=== PATIENT | female | born 1995 | race Caucasian/White ===

== ENCOUNTER 2017-11-07 16:30 | Emergency (ER) | payer MEDICAID ==
[~2017-11-07] VITALS: Ht 175.3 cm; Wt 70.0 kg
[2017-11-07] MEDS ORDERED: normal saline 1000ML IV soln IVB ONE (16:45)
[2017-11-07 16:59] LABS: BASOPHILS % (AUTO) 0.2 % (0-1); EOSINOPHILS # (AUTO) 0.1 X10'3 (0-0.9); EOSINOPHILS % (AUTO) 0.9 % (0-6); LYMPHOCYTES # (AUTO) 1.3 X10'3 (1.1-4.8); LYMPHOCYTES % (AUTO) 13.8 % (21-51); MEAN CORPUSCULAR HEMOGLOBIN 29.9 PG (27.0-31.0); MEAN CORPUSCULAR HGB CONC 33.3 % (33.0-36.5); MEAN CORPUSCULAR VOLUME 89.8 FL (78-98); MEAN PLATELET VOLUME 9.4 FL (7.4-10.4); MONOCYTES # (AUTO) 0.4 X10'3 (0-0.9); MONOCYTES % (AUTO) 4.4 % (2-12); NEUTROPHILS # (AUTO) 7.6 X10'3 (1.8-7.7); NEUTROPHILS % (AUTO) 80.7 % (42-75); PLATELET COUNT 275 X10'3 (140-440); RED BLOOD COUNT 4.35 X10'6 (4.20-5.60); RED CELL DISTRIBUTION WIDTH 12.6 % (11.5-14.5); WHITE BLOOD COUNT 9.4 X10'3 (4.5-11.0)
[2017-11-07 17:18] LABS: ALANINE AMINOTRANSFERASE 28 U/L (12-78); ALBUMIN 4.2 G/DL (3.4-5.0); ALBUMIN/GLOBULIN RATIO 1.2 (1.1-1.5); ALKALINE PHOSPHATASE 152 IU/L (46-116); ANION GAP 18 (8-16); ASPARTATE AMINO TRANSFERASE 14 U/L (10-37); BILIRUBIN,TOTAL 0.5 MG/DL (0.1-1.0); BLOOD UREA NITROGEN 15 MG/DL (7-18); BUN/CREATININE RATIO 17.4 (6.6-38.0); CALCIUM 8.6 MG/DL (8.5-10.1); CHLORIDE 99 MMOL/L (99-107); CREATININE 0.86 MG/DL (0.40-0.90); GLUCOSE 318 MG/DL (70-104); POTASSIUM 4.2 MMOL/L (3.5-5.1); SODIUM 137 MMOL/L (135-145); TOTAL CARBON DIOXIDE 19.9 MMOL/L (24-32); TOTAL PROTEIN 7.6 G/DL (6.4-8.2); eGFR 81 ML/MIN
[2017-11-07] MEDS ORDERED: diphenhydrAMINE 50 mg/ml inj IM ONE (17:25)
[2017-11-07] MEDS ORDERED: haloperidol lactate 5mg/ml inj IM ONE (17:25)
[2017-11-07 17:27] LABS: ETHANOL < 0.010 GM/DL (0.0-0.010)
[2017-11-07 17:41] LABS: CLARITY,URINE SLIGHTLY CLOUDY (Clear); COLOR,URINE STRAW (Yellow); GLUCOSE, URINE >=1000 mg/dl (Neg); KETONES,URINE >=80 mg/dl (Neg); LEUKOCYTE ESTERASE ,URINE NEGATIVE (Neg); NITRITES, URINE NEGATIVE (Neg); OCCULT BLOOD,URINE NEGATIVE (Neg); PROTEIN,URINE NEGATIVE (Neg); UA COLLECTION TYPE CLN CATCH MIDSTREAM; UROBILINOGEN,URINE 0.2 E.U/dL (0.2-1.0)
[2017-11-07 17:47] LABS: SQUAMOUS EPITHELIAL CELL,UR FEW /LPF (FEW)
[2017-11-07 17:48] LABS: BACTERIA,URINE FEW /HPF (Neg); RBC,URINE 0-2 /HPF (0-2); WBC,URINE 0-4 /HPF (0-4)
[2017-11-07 17:50] LABS: URINE HCG NEGATIVE (NEG)
[2017-11-07 18:01] LABS: URINE AMPHETAMINE SCREEN NEGATIVE (Neg); URINE BARBITUATE SCREEN NEGATIVE (Neg); URINE BENZODIAZEPINES SCREEN NEGATIVE (Neg); URINE CANNABINOID SCREEN NEGATIVE (Neg); URINE COCAINE SCREEN NEGATIVE (Neg); URINE METHADONE SCREEN NEGATIVE (Neg); URINE OPIATE SCREEN NEGATIVE (Neg); URINE PHENCYCLIDINE SCREEN NEGATIVE (Neg)
[2017-11-07] MEDS ORDERED: insulin regular, human 10 units/0.1 ml syringe SQ ONE (18:30)
[2017-11-07] MEDS ORDERED: dextrose ORAL solution 15 GM/59 ML bottle PO PRN ×2 (18:30)
[2017-11-07] MEDS ORDERED: glucagon, human recombinant 1mg kit SUBCUT PRN (18:30)
[2017-11-07] MEDS ORDERED: MESSAGE TO PHARMACY PO ONE (18:30)
[2017-11-07] MEDS ORDERED: dextrose 50%-water 50ml dispensing syringe IV PRN ×2 (18:30)
[2017-11-07 19:20] LABS: HEMOGLOBIN A1C 8.5 % (4.5-6.2)
[2017-11-07] MEDS ORDERED: OLANZapine **IM** 10 mg inj. IM ONE (19:50)
[2017-11-07] MEDS ORDERED: insulin glargine (Lantus) pen - multi-dose SQ SCH (21:00)
[2017-11-07] MEDS: insulin Lispro (HumaLOG) vial - multi-dose SQ SCH (22:20)
[2017-11-08] MEDS ORDERED: ARIP10TA15 PO (06:53)
[2017-11-08] MEDS ORDERED: LANTUS SQ (06:53)
[2017-11-08] MEDS ORDERED: ARIP400S2 IM (06:53)
[2017-11-08] MEDS ORDERED: aripiprazole 5mg tablet PO SCH (08:00)
[2017-11-08] MEDS: insulin Lispro (HumaLOG) vial - multi-dose SQ SCH ×3 (08:32→19:22)
[2017-11-08] MEDS ORDERED: acetaminophen 325mg tablet PO PRN (13:55)
[2017-11-08 17:57] VITALS: BP 101/71
[2017-11-08] MEDS ORDERED: insulin glargine (Lantus) pen - multi-dose SQ SCH (21:00)
[2017-11-24] MEDS ORDERED: MISCELLANEOUS INJECTION IM SCH (08:00)
== END 2017-11-08 19:56 ==
LOC: ER 16:33
DX: E10.65 Type 1 diabetes mellitus with hyperglycemia (principal); F29 Unspecified psychosis not due to a substance or known physiological condition; Z79.4 Long term (current) use of insulin; Z79.899 Other long term (current) drug therapy
CPT/HCPCS: 36415; 80053; 80305; 80320; 81001; 81025; 82948; 83036; 84443; 85025; 96372; 99285; J1200; J1630; J1815; J7030

== ENCOUNTER 2019-07-18 06:18 | Emergency (ER) | payer MEDICAID ==
[~2019-07-18] VITALS: Ht 170.2 cm; Wt 210.0 kg
[~2019-07-18 06:18] MED LIST: ARIP10TA15 PO; ARIP400S2 IM; LANTUS SQ
[2019-07-18] MEDS ORDERED: haloperidol lactate 5mg/ml inj IM ONE (06:20)
[2019-07-18] MEDS ORDERED: LORazepam 2 mg/ml vial IM ONE ×2 (06:20→10:45)
[2019-07-18] MEDS ORDERED: diphenhydrAMINE 50 mg/ml inj IM ONE (06:20)
[2019-07-18] MEDS ORDERED: normal saline 1000ML IV soln IVB ONE (06:25)
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
[2019-07-18] MEDS ORDERED: BUSP15TA3 PO (06:48)
[2019-07-18] MEDS ORDERED: CLON-369 PO (06:48)
[2019-07-18] MEDS ORDERED: HALO10TA13 PO (06:48)
[2019-07-18 08:22] LABS: URINE HCG NEGATIVE (NEG)
[2019-07-18 08:27] LABS: CLARITY,URINE CLEAR (Clear); COLOR,URINE STRAW (Yellow); GLUCOSE, URINE 500 mg/dl (Neg); KETONES,URINE 40 mg/dl (Neg); LEUKOCYTE ESTERASE ,URINE NEGATIVE (Neg); NITRITES, URINE NEGATIVE (Neg); OCCULT BLOOD,URINE NEGATIVE (Neg); PH,URINE 5.5 (4.8-8.0); PROTEIN,URINE NEGATIVE (Neg); UROBILINOGEN,URINE 0.2 E.U/dL (0.2-1.0)
[2019-07-18 08:28] LABS: UA COLLECTION TYPE STRAIGHT CATH
[2019-07-18 08:35] LABS: URINE AMPHETAMINE SCREEN NEGATIVE (Neg); URINE BARBITUATE SCREEN NEGATIVE (Neg); URINE BENZODIAZEPINES SCREEN NEGATIVE (Neg); URINE CANNABINOID SCREEN NEGATIVE (Neg); URINE COCAINE SCREEN NEGATIVE (Neg); URINE METHADONE SCREEN NEGATIVE (Neg); URINE OPIATE SCREEN NEGATIVE (Neg); URINE PHENCYCLIDINE SCREEN NEGATIVE (Neg)
[2019-07-18 08:38] LABS: BASOPHILS % (AUTO) 0.2 % (0-1); EOSINOPHILS % (AUTO) 0.1 % (0-6); HEMATOCRIT 39.6 % (35.0-45.0); HEMOGLOBIN 13.1 g/dl (12.0-16.0); LYMPHOCYTES % (AUTO) 7.5 % (21-51); MEAN CORPUSCULAR HEMOGLOBIN 29.4 PG (27.0-31.0); MEAN PLATELET VOLUME 9.2 FL (7.4-10.4); MONOCYTES # (AUTO) 0.8 X10'3 (0-0.9); MONOCYTES % (AUTO) 5.8 % (2-12); NEUTROPHILS # (AUTO) 11.7 X10'3 (1.8-7.7); NEUTROPHILS % (AUTO) 86.4 % (42-75); PLATELET COUNT 282 X10'3 (140-440); RED BLOOD COUNT 4.45 X10'6 (4.20-5.60); RED CELL DISTRIBUTION WIDTH 13.3 % (11.5-14.5); WHITE BLOOD COUNT 13.6 X10'3 (4.5-11.0)
[2019-07-18 08:57] LABS: ALANINE AMINOTRANSFERASE 19 U/L (12-78); ALBUMIN 4.2 G/DL (3.4-5.0); ALBUMIN/GLOBULIN RATIO 1.2 (1.1-1.5); ALKALINE PHOSPHATASE 100 IU/L (46-116); ANION GAP 13 (8-16); ASPARTATE AMINO TRANSFERASE 18 U/L (10-37); BILIRUBIN,TOTAL 0.5 MG/DL (0.1-1.0); BLOOD UREA NITROGEN 14 MG/DL (7-18); BUN/CREATININE RATIO 14.9 (6.6-38.0); CALCIUM 8.9 MG/DL (8.5-10.1); CHLORIDE 101 MMOL/L (99-107); CREATININE 0.94 MG/DL (0.40-0.90); GLUCOSE 311 MG/DL (70-104); SODIUM 138 MMOL/L (135-145); TOTAL CARBON DIOXIDE 24.1 MMOL/L (24-32); TOTAL PROTEIN 7.7 G/DL (6.4-8.2); eGFR 73 ML/MIN
[2019-07-18 09:07] LABS: ETHANOL < 0.010 GM/DL (0.0-0.010)
[2019-07-18 09:09] LABS: ACETAMINOPHEN < 2.0 UG/ML (10-30)
--- NOTE | 2019-07-18 10:40 | NUR ---
PT BECOMING MORE AGITATED AT THIS TIME WILL ADVISE PROVIDER. PT'S RESTRAINTS HAVE BEEN REMOVED/APPLIED AND SKIN ASSESSED PER PROTOCOL
[2019-07-18] MEDS ORDERED: OLANZapine **IM** 10 mg inj. IM ONE (10:45)
[2019-07-18] MEDS ORDERED: busPIRone 15mg tablet PO PRN (12:00)
--- NOTE | 2019-07-18 12:30 | NUR ---
Patient was transferred ambulating self, no distress observed. Patient is already in green scrubs, all items inventoried and placed in locked cabinet for safe keeping. She is a non-smoker. Patient is pleasant and cooperaticve with care. She appears to be resonding to some internal stimuli, laughing at inappropriate times and taking large pauses prior to answering. She appears somewhat tired possibly related to previously administered medications. Patient denies SI/HI/A/VH as of right now. She is being evaluated by GUADALUPE Vidales. Patient hasa Hx of DM I and DKA. She also hasa previous hx of schizophrenia and states that she ran out of her medications three days ago.
--- NOTE | 2019-07-18 13:00 | NUR ---
BREAKING PRIMARY NURSE AT THIS TIME.[facility] DIGITAL MARKETING OFFICER AT BEDSIDE TALKING TO EPT,PT WANT TO EXPRESS HER FEELING BY DRAWING SO [facility] MARIEL ASKED FOR PAPER AND COLOR,GIVEN TO [facility] PT.WILL CONT TO MONITOR .
--- NOTE | 2019-07-18 14:25 | NUR ---
Admissions is at bedside going through consents and paperwork with patient. Patient is somewhat difficult to rouse but is directable and compliant.
--- NOTE | 2019-07-18 14:32 | NUR ---
Flash from [facility] states that he is keeping patient on a 5150 for DTO/GD.
--- NOTE | 2019-07-18 14:50 | NUR ---
Patient is difficult to rouse but is currently sitting up in bed in the high palomino's position, eating her lunch.
[2019-07-18] MEDS: clonazePAM 0.5mg tablet PO PRN (16:48)
--- NOTE | 2019-07-18 16:53 | NUR ---
Patient states she is anxious and she just wants to "get out of here and get wasted". She attempts to get out of bed "to leave" but is redirectable with much prompting. She is given PRN Klonopin and is now resting peacefully. She continues to have tangential speech with some thought blocking. Will continue to monitor.
--- NOTE | 2019-07-18 17:27 | NUR ---
Patient is resting in bed peacefully in a semi-palomino's position. No distress observed.
--- NOTE | 2019-07-18 19:02 | NUR ---
Received patient sleeping in her bed in supine position, patient states "I am feeling funny" requested her blood sugar to be taken. POC blood glucose 295. Will follow up with provider.
[2019-07-18] MEDS ORDERED: INSU100I31 SQ (19:41)
[2019-07-18] MEDS ORDERED: BUSP30TA3 PO (19:41)
[2019-07-18] MEDS ORDERED: INSU100I45 SQ (19:41)
--- NOTE | 2019-07-18 20:05 | NUR ---
Patient is sleeping in semi-palomino position, respirations even and unlabored. Pt. rouses to name and allows 1:1 assessment. Patient ate 100% of her dinner. Patient is mumbling under her breath and when asked what she is saying "oh nothing, never mind." Unable to assess SI/HI, A/VH pt. just doesn't respond to questions and pt. presents as fatigued. Patient remains calm thoughout assessment and immedialy falls back to sleep. Pt. is compliant with medications. Patient HS blood glucose was 295.
[2019-07-18] MEDS ORDERED: MESSAGE TO PHARMACY PO ONE (21:00)
[2019-07-18] MEDS ORDERED: insulin Lispro (HumaLOG) vial - multi-dose SQ SCH (21:00)
[2019-07-18] MEDS ORDERED: dextrose 50%-water 50ml dispensing syringe IV PRN ×2 (21:00)
[2019-07-18] MEDS ORDERED: dextrose ORAL solution 15 GM/59 ML bottle PO PRN ×2 (21:00)
[2019-07-18] MEDS ORDERED: glucagon, human recombinant 1mg kit SUBCUT PRN (21:00)
[2019-07-18] MEDS: haloperidol 5mg tablet PO SCH (21:04)
[2019-07-18] MEDS: insulin glargine (Lantus) pen - multi-dose SQ SCH (21:07)
--- NOTE | 2019-07-18 22:12 | NUR ---
Patient continues to sleep in semi-fowlers position, respirations even and unlabored. No distress noted.
--- NOTE | 2019-07-19 00:35 | NUR ---
Patient sleeping on left side, no distress noted. Respirations even and unlabored.
--- NOTE | 2019-07-19 02:14 | NUR ---
Patient sleeping restfully on right side, respirations even and unlabored.
--- NOTE | 2019-07-19 03:54 | NUR ---
Patient up to the bathroom, then back to bed. No distress noted. Patient returns to right side.
[2019-07-19] MEDS ORDERED: ARIPIPRAZOLE 10 MG TABLET PO SCH (08:00)
[2019-07-19] MEDS ORDERED: aripiprazole 400mg suspension ER syringe IM SCH (08:00)
[2019-07-19] MEDS: haloperidol 5mg tablet PO SCH ×2 (08:15→20:30)
--- NOTE | 2019-07-19 13:03 | NUR ---
relieving RN for lunch, pt is sleeping, lunch tray at bedside, pt is now awake eating lunch, calm and cooperative
--- NOTE | 2019-07-19 16:06 | NUR ---
sitting quietly in bed
[2019-07-19] MEDS ORDERED: busPIRone 15mg tablet PO PRN (16:45)
--- NOTE | 2019-07-19 17:13 | NUR ---
sitting quietly in bed
[2019-07-19 17:35] VITALS: BP 112/48
[2019-07-19] MEDS: clonazePAM 0.5mg tablet PO PRN (20:30)
[2019-07-19] MEDS: insulin glargine (Lantus) pen - multi-dose SQ SCH (20:33)
--- NOTE | 2019-07-19 21:20 | NUR ---
The patient has been accepted to [facility] sometime tonight.
== END 2019-07-19 21:30 ==
LOC: ER 06:19
DX: F23 Brief psychotic disorder (principal); E11.9 Type 2 diabetes mellitus without complications; Z79.4 Long term (current) use of insulin; Z79.899 Other long term (current) drug therapy
CPT/HCPCS: 36415; 71045; 80053; 80305; 80320; 80329; 81003; 81025; 82948; 83036; 84443; 85025; 93005; 96372; 99291; J1200; J1630; J1815; J2060; J3490; J7030

== ENCOUNTER 2019-07-19 20:52 | Inpatient (IN) | payer MEDICAID ==
[~2019-07-19] VITALS: Ht 175.3 cm; Wt 94.6 kg
[~2019-07-19 20:52] MED LIST changes: +BUSP30TA3 PO; +CLON-369 PO; +HALO10TA13 PO; +INSU100I31 SQ; +INSU100I45 SQ
[2019-07-19 23:30] VITALS: BP 114/67
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
[2019-07-20] MEDS ORDERED: traZODone 50mg tablet PO PRN (02:45)
[2019-07-20] MEDS ORDERED: diphenhydrAMINE 25mg capsule PO PRN (02:45)
[2019-07-20] MEDS ORDERED: mag hydrox/Alum hydrox/simeth 30ml oral suspension PO PRN (02:45)
[2019-07-20] MEDS ORDERED: magnesium hydroxide 30ml (MOM) UD suspension PO PRN (02:45)
[2019-07-20] MEDS ORDERED: LORazepam 1 MG tablet PO PRN ×2 (02:45)
[2019-07-20] MEDS ORDERED: quetiapine 100mg tablet PO PRN (02:45)
[2019-07-20] MEDS ORDERED: loperamide 2mg capsule PO PRN (02:45)
[2019-07-20] MEDS ORDERED: haloperidol 5mg tablet PO PRN (02:45)
[2019-07-20] MEDS ORDERED: acetaminophen 325mg tablet PO PRN ×2 (02:45)
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
[2019-07-20 07:47] VITALS: BP 102/68
[2019-07-20] MEDS: haloperidol 5mg tablet PO SCH ×2 (08:30→20:20)
[2019-07-20] MEDS: busPIRone 15mg tablet PO PRN ×3 (10:12→18:20)
--- NOTE | 2019-07-20 10:14 | NUR ---
DM Consult: Pt hx T1DM A1C 7.2 admit w/ psychosis combative in ER per note. Not appropriate for DM ed at this time. Addendum: 07/20/19 at [address] Amended: Links added.
[2019-07-20] MEDS ORDERED: insulin Lispro (HumaLOG) vial - multi-dose SQ ONE ×3 (11:45→20:35)
[2019-07-20] MEDS ORDERED: insulin Lispro (HumaLOG) vial - multi-dose SQ SCH (11:45)
[2019-07-20] MEDS: insulin Lispro (HumaLOG) vial - multi-dose SQ SCH (17:00)
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
[2019-07-20] MEDS: clonazePAM 0.5mg tablet PO PRN (18:51)
[2019-07-20 20:00] VITALS: BP 113/68
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
[2019-07-21] MEDS: insulin Lispro (HumaLOG) vial - multi-dose SQ SCH ×4 (07:00→17:00)
[2019-07-21 08:00] VITALS: BP 124/73
[2019-07-21] MEDS ORDERED: insulin glargine (Lantus) pen - multi-dose SQ SCH (08:00)
[2019-07-21] MEDS: haloperidol 5mg tablet PO SCH ×2 (08:15→20:24)
[2019-07-21] MEDS: BASAGLAR INSULIN SQ SCH (08:25)
[2019-07-21] MEDS: busPIRone 15mg tablet PO PRN ×2 (09:22→18:18)
--- NOTE | 2019-07-21 10:00 | NUR ---
Group Therapy: Process Group This Clinicians goal for this process group were as follows: (1) Ask scaling questions about Patients current anxiety, depression, and irritability symptoms as a check-in. (2) Review the concept of emotional and situational triggers as it relates to potential onsets of maladaptive episodes of emotional escalation. (3) Review the concept of thought-stopping, and thought-reframing as interventions to stop unhelpful/irrational thinking processes. (4) Provide psychoeducation on mindfulness as a principle that can assist in reducing maladaptive symptoms of emotional escalation. (5) Process Clients thoughts and reflections on this topic within the group milieu. Patient identified experiencing the following levels of anxiety, depression, and anger/irritability while present in the group milieu. Anxiety: 05/29 Depression: 06/28 Anger irritability: 02/28 Patient presented as open and cooperative within the group milieu. This Clinician encouraged Client to identify any thoughts that she was thinking in her mind and any physical sensations that she was experiencing that led her to list her subjective experience of depression as a 5. Patient shared that she not thinking any unhelpful thoughts, but she simply felt tired and lethargic. This Clinician used Patient's description of her depression symptoms as a segway to discuss the importance of identifying thoughts and feelings, and being able to utilize effective interventions,before it becomes too challenging to reduce said symptoms (08/28 on a symptom). Oracio Fields MA, JOHN Addendum: 07/21/19 at 1132 by Oracio Fields SS Amended: Links added.
[2019-07-21] MEDS ORDERED: venlafaxine XR 75mg capsule (Q24H) PO ONE (11:35)
[2019-07-21] MEDS ORDERED: venlafaxine XR 37.5mg cap (Q24H) PO ONE (12:00)
[2019-07-21] MEDS ORDERED: insulin Lispro (HumaLOG) vial - multi-dose SQ PRN (13:05)
[2019-07-21] MEDS: clonazePAM 0.5mg tablet PO PRN (13:51)
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
--- NOTE | 2019-07-21 17:59 | NUR ---
Patient ate 11 carbohydrates with her dinner and refused insulin coverage because her CBG was 72.
[2019-07-21 20:00] VITALS: BP 98/55
[2019-07-21] MEDS: busPIRone 15mg tablet PO SCH (20:24)
[2019-07-21] MEDS ORDERED: glucagon, human recombinant 1mg kit SUBCUT PRN (23:30)
[2019-07-21] MEDS ORDERED: dextrose 50%-water 50ml dispensing syringe IV PRN ×2 (23:30)
[2019-07-21] MEDS ORDERED: dextrose ORAL solution 15 GM/59 ML bottle PO PRN ×2 (23:30)
[2019-07-21] MEDS ORDERED: insulin Lispro (HumaLOG) vial - multi-dose SQ SCH (23:30)
[2019-07-21] MEDS ORDERED: MESSAGE TO PHARMACY PO ONE (23:30)
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
[2019-07-22] MEDS: BASAGLAR INSULIN SQ SCH (07:21)
[2019-07-22] MEDS: venlafaxine XR 37.5mg cap (Q24H) PO SCH (07:29)
[2019-07-22] MEDS: busPIRone 15mg tablet PO SCH ×2 (07:45→13:55)
[2019-07-22] MEDS: haloperidol 5mg tablet PO SCH (07:46)
[2019-07-22 08:00] VITALS: BP 115/71
--- NOTE | 2019-07-22 10:17 | NUR ---
Patient requested her blood sugar be checked and was 69. Pt. given 15g carb orange juice and will recheck CBG in 15 minutes
[2019-07-22] MEDS: clonazePAM 0.5mg tablet PO PRN (10:21)
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
--- NOTE | 2019-07-22 10:25 | NUR ---
[facility] REFERRAL Completed and faxed [facility] referral to [facility]. JOHN Colunga
[2019-07-22] MEDS ORDERED: tuberculin, purif. prot. deriv. 5 units/0.1ml ID ONE (13:35)
[2019-07-22] MEDS ORDERED: busPIRone 15mg tablet PO ONE (17:05)
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
[2019-07-22 20:00] VITALS: BP 106/64
[2019-07-22] MEDS ORDERED: haloperidol 5mg tablet PO ONE (21:00)
[2019-07-22] MEDS ORDERED: insulin glargine (Lantus) pen - multi-dose SQ SCH (21:00)
--- NOTE | 2019-07-23 00:14 | NUR ---
Nursing Progress Note: Legal hold: 5150 Client on voluntary/involuntary status for GD/DTO Report received from Taylor with use of SBAR. Why are they here: Patient is a 23 year old female who is brought to the ER by the Infrastructure Analyst's office from home for acute psychosis. The patient's mother states that the patient has a known history of schizophrenia and she is unaware of the medications that the patient has been taking. The patient has known history of type I diabetes and she does take insulin. The patient was found swimming in her neighbors pool and when the Infrastructure Analyst showed up she began yelling and screaming. The patient yelled and screamed from her arrest during her car ride to her arrival at the hospital. The patient was placed on a 5150 by the Infrastructure Analyst's department. Mother states that there are questionable suicidal and homicidal ideations. Assessment What has happened this shift: Patient isolated to her room this shift asleep at start. Attempted to get her to get out of bed but stated no want to stay in bed. Pt appears with drawn today and little anxious. Hs blood sugar 217 refused snack and fell back to sleep after meds. S/I, H/I: denies A/VH: denies Sleep: Napped frequently throughout the day. ADL's: Independent. Showered Group attendance: Yes Were meds taken: Yes Any med S/E: Pt. reports fatigue. Mental Status Exam Appearance: neat and clean Eye contact: direct Behavior: cooperative, withdrawn, isolates to room. Speech: normal rate and volume Affect: flat Mood: Depressed Thought process: linear Thought Content: Concerns of going to a CR Cognition: A+OX4 Insight: fair Judgment: fair Interventions PRN's used: none Therapeutic interventions: Introduced self and established rapport, maintained a safe and supportive environment, provided clear and simple instructions medication administration/education/monitoring, Q15 min safety checks. Restraints/seclusion/emergency medication: N/A Justification of Continued Inpatient Treatment: Patient requires interruption of current crisis, medication adjustments in a safe and therapeutic environment.
[2019-07-23] MEDS: insulin Lispro (HumaLOG) vial - multi-dose SQ SCH ×3 (07:00→17:59)
[2019-07-23] MEDS: BASAGLAR INSULIN SQ SCH (07:20)
[2019-07-23] MEDS ORDERED: BASAGLAR INSULIN SQ ONE (07:25)
[2019-07-23 08:00] VITALS: BP 114/66
[2019-07-23] MEDS: venlafaxine XR 37.5mg cap (Q24H) PO SCH (08:25)
[2019-07-23] MEDS: haloperidol 5mg tablet PO SCH ×2 (08:25→21:26)
[2019-07-23] MEDS: busPIRone 15mg tablet PO SCH ×3 (09:30→16:31)
--- NOTE | 2019-07-23 10:12 | NUR ---
HYPOGLYCEMIC EPISODE: Pt. hypoglycemic this AM with a BS of 67, Dr. Frias notified. Received order to administer only 50units of Basaglar Insulin. Pt. also given oral glucose Dex4 per protocol. Blood sugar rechecked in 15min and was 121, will continue to monitor.
--- NOTE | 2019-07-23 11:16 | NUR ---
ACCEPTED AT [facility] Key interviewed with Alexander for [facility]. She has been accepted. Spoke to Michele at [facility], she can go on Sunday as long as she has all of her medications in hand (30 day supply). JOHN Colunga
[2019-07-23] MEDS: clonazePAM 0.5mg tablet PO PRN (11:47)
--- NOTE | 2019-07-23 11:53 | NUR ---
Nursing Progress Note: Legal hold: Voluntary Client on voluntary/involuntary status for GD/DTO Report received from nurse with use of SBAR: OSMANI Henry Why are they here: Patient is a 23 year old female who is brought to the ER by the Hotel Server's office from home for acute psychosis. The patient's mother states that the patient has a known history of schizophrenia and she is unaware of the medications that the patient has been taking. The patient has known history of type I diabetes and she does take insulin. The patient was found swimming in her neighbors pool and when the Hotel Server showed up she began yelling and screaming. The patient yelled and screamed, and continued to do so r/t her arrest during her car ride and arrival at the hospital. The patient was placed on a 5150 by the [facility]'s department. Mother states that there are questionable suicidal and homicidal ideations. Assessment What has happened this shift: Received pt. laying in bed sleeping at the beginning of the shift, she awoke requesting her scheduled Basaglar Insulin. However, BS obtained and pt. was hypoglycemic (see previous note) she denies any s/s or hypoglycemia and none exhibited. Dr. Frias notified, and pt's Basaglar Insulin will be reduced to 50 units Q AM. 1:1 completed at bedside, pt. denies any S/I/, H/I, A/V/VILLAVICENCIO, and no delusional statements made. She states, "I am feeling good, and I have a plan for where I'm going next." However, pt. does admit to some ongoing anxiety r/t her possible placement at [facility], and reports that she will be having a FaceTime interview with [facility] and her oncology social worker today. Interview appeared to go well, and pt. called her family in order to have them bring in her medications so the she can take them to [facility] with her. Pt's father will bring in medications tomorrow. Pt. reports she has maintained a good relationship with her family despite the occurrences the brought her onto the unit. In the afternoon she requested PRN Clonazepam for anxiety, administered with effectiveness, will continue to monitor. S/I, H/I: Denies A/VH: Denies, pt. does not appear internally preoccupied Sleep: Pt. reports she slept well, sleep hours are 10 ADL's: Independent Group attendance: No Were meds taken: Yes Any med S/E: None Mental Status Exam Appearance: Neat and appropriately dressed Eye contact: Good Behavior: Cooperative and somewhat anxious/restless AEB pacing and making many requests throughout the shift Speech: Soft, WNL Mood: Pleasant Affect: Blunted Thought process: Poverty of thought Thought Content: Anxiety r/t upcoming placement/discharge Cognition: A&O X4 Insight: Poor Judgment: Fair Interventions PRN's used: Clonazepam Therapeutic interventions: Introduced self and established rapport, maintained a safe and supportive environment, ensured contract for safety, monitored blood glucose and obtained order to adjust insulin as needed, monitored behaviors and need for intervention, provided clear and simple instructions, and maintained a safe and supportive environment. Restraints/seclusion/emergency medication: N/A Justification of Continued Inpatient Treatment: Pt. continues to require medication adjustments, housing, and a safe and supportive environment.
[2019-07-23 20:00] VITALS: BP 131/71
--- NOTE | 2019-07-24 00:54 | NUR ---
Nursing Progress Note: Legal hold: VOL Client on voluntary/involuntary status for GD/DTO Report received from nurse with use of SBAR. Why are they here: Patient is a 23 year old female who is brought to the ER by the Clay Maker's office from home for acute psychosis. The patient's mother states that the patient has a known history of schizophrenia and she is unaware of the medications that the patient has been taking. The patient has known history of type I diabetes and she does take insulin. The patient was found swimming in her neighbors pool and when the Clay Maker showed up she began yelling and screaming. The patient yelled and screamed from her arrest during her car ride to her arrival at the hospital. The patient was placed on a 5150 by the Clay Maker's department. Mother states that there are questionable suicidal and homicidal ideations. Assessment What has happened this shift: Patient isolated to her room the entirety of the shift. She is cooperative with 1:1 assessment and makes good eye contact. She is polite and smiles at principal technical writer. She is quiet, answers questions but does not produce any thoughts of her own out loud. She does say that she felt "good today" and denies SI/HI/AH/VH at this time . Pt's HS blood glucose was 119. S/I, H/I: denies A/VH: denies Sleep: see sleep assessment ADL's: Independent Group attendance: NA Were meds taken: yes Any med S/E none reported, none observed Mental Status Exam Appearance: neat and clean Eye contact: direct Behavior: cooperative, isolative Speech: normal rate and volume Affect: flat Mood: "pretty good" Thought process: linear Thought Content: getting ready for bed Cognition: A+OX4 Insight:fair Judgment:fair Interventions PRN's used:NA Therapeutic interventions: Introduced self and established rapport, maintained a safe and supportive environment, provided clear and simple instructions medication administration/education/monitoring, Q15 min safety checks. Restraints/seclusion/emergency medication: N/A Justification of Continued Inpatient Treatment: Patient requires interruption of current crisis, medication adjustments in a safe and therapeutic environment.
[2019-07-24] MEDS: insulin Lispro (HumaLOG) vial - multi-dose SQ SCH ×3 (07:00→17:00)
[2019-07-24] MEDS: BASAGLAR INSULIN SQ SCH (07:12)
[2019-07-24] MEDS: haloperidol 5mg tablet PO SCH ×2 (08:27→21:15)
[2019-07-24] MEDS: venlafaxine XR 37.5mg cap (Q24H) PO SCH (08:27)
[2019-07-24 08:44] VITALS: BP 112/68
--- NOTE | 2019-07-24 10:00 | NUR ---
Group Therapy: Process Group This Clinicians goals for this process group were as follows: (1) Ask scaling questions about Patients current anxiety, depression, and irritability symptoms as a check-in. (2) Share with Patients psychoeducation about the importance of being able to identify safe, and supportive people who can assist them with their mental and emotional needs. (3) Share psychoeducation on interpersonal boundaries and considerations to assist Patients in developing the ability to discern which groups and individuals will be helpful in assisting them during times of emotional escalation and crisis. (4) Review emotional relaxation techniques (5) Engage Patients in discussion of the topics discussed within the group milieu. Patient identified experiencing the following levels of anxiety, depression, and anger/irritability while present in the group milieu. Anxiety: 04/28 Depression: 04/28 Anger irritability: 02/28 Patient presented as open, and cooperative within the group milieu. Patient was dressed in a yellow blouse and black pants. Patient presented as verbally engaged, unobtrusive and alert within the group milieu. Patient reported that she feeling a little bit anxious because she anticipated discharging from the medical milieu to the [facility] tomorrow. Patient reported that she had been there before and was looking forward to being discharged. Patient presented as attentive during the discussion on interpersonal boundaries and strategies for identifying people who may become a part of one's mental health support system, but she did not offer any comments on the topic within the group milieu. Oracio Fields MA, JOHN Addendum: 07/25/19 at 0817 by Oracio Fields SS Amended: Links added.
[2019-07-24] MEDS: busPIRone 15mg tablet PO SCH ×3 (10:08→18:03)
[2019-07-24] MEDS ORDERED: BUS15T PO (10:34)
[2019-07-24] MEDS ORDERED: HALO5TAB PO ×2 (10:34)
[2019-07-24] MEDS ORDERED: CLON0.5T4 PO (10:34)
[2019-07-24] MEDS ORDERED: TRAZ-251 PO (10:34)
[2019-07-24] MEDS ORDERED: EFF37.5XRC PO (10:34)
--- NOTE | 2019-07-24 11:32 | NUR ---
DISCHARGE PLANNING Dropped off Key's Rx's at [facility] on [address] as she will need to have medications on hand for [facility] admittance. Welding Manager will knot picker cloth meds tomorrow AM. JOHN Colunga
--- NOTE | 2019-07-24 15:47 | NUR ---
Nursing Progress Note: Legal hold: Voluntary Client on voluntary/involuntary status for GD/DTO Report received from nurse with use of SBAR: OSMANI Henry Why are they here: Patient is a 23 year old female who is brought to the ER by the Delicatessen Store Manager's office from home for acute psychosis. The patient's mother states that the patient has a known history of schizophrenia and she is unaware of the medications that the patient has been taking. The patient has known history of type I diabetes and she does take insulin. The patient was found swimming in her neighbors pool and when the Delicatessen Store Manager showed up she began yelling and screaming. The patient yelled and screamed, and continued to do so r/t her arrest during her car ride and arrival at the hospital. The patient was placed on a 5150 by the Delicatessen Store Manager's department. Mother states that there are questionable suicidal and homicidal ideations. Assessment What has happened this shift: Received pt. laying in bed sleeping at the beginning of the shift, she awoke and appropriately greeted this hand sign writer. 1:1 completed at bedside, pt. continues to deny any MH s/s and reports that she is looking forward to going to [facility] tomorrow. BS obtained and was 77, Basaglar insulin administered per orders, and BS remained stable throughout the shift. Pt. did not require any Humalog coverage at breakfast or lunch time. Pt. is up on the unit interacting appropriately with others throughout the shift. Pt's father came and dropped off her home medications, they are currently being stored in pharmacy and will be sent with pt. upon discharge. S/I, H/I: Denies A/VH: Denies, pt. does not appear internally preoccupied Sleep: Pt. reports she slept well, sleep hours are 10 ADL's: Independent Group attendance: No Were meds taken: Yes Any med S/E: None Mental Status Exam Appearance: Neat and appropriately dressed Eye contact: Good Behavior: Cooperative and somewhat restless at times Speech: Soft, WNL Mood: Pleasant Affect: Animated Thought process: Linear Thought Content: Looking forward to discharge Cognition: A&O X4 Insight: Fair Judgment: Fair Interventions PRN's used: None Therapeutic interventions: Maintained a safe and supportive environment, ensured contract for safety, monitored blood glucose and monitored pt's self-administration of insulin as needed, monitored behaviors and need for intervention, provided clear and simple instructions, and maintained a safe and supportive environment. Restraints/seclusion/emergency medication: N/A Justification of Continued Inpatient Treatment: Pt. continues to require a safe and supportive environment. She will discharge tomorrow to [facility].
[2019-07-24 19:58] VITALS: BP 102/62
--- NOTE | 2019-07-24 21:50 | NUR ---
Nursing Progress Note: Legal hold: VOL Client on voluntary/involuntary status for GD/DTO Report received from nurse with use of SBAR Why are they here: Patient is a 23 year old female who is brought to the ER by the Jointer Submarine Cable's office from home for acute psychosis. The patient's mother states that the patient has a known history of schizophrenia and she is unaware of the medications that the patient has been taking. The patient has known history of type I diabetes and she does take insulin. The patient was found swimming in her neighbors pool and when the Jointer Submarine Cable showed up she began yelling and screaming. The patient yelled and screamed from her arrest during her car ride to her arrival at the hospital. The patient was placed on a 5150 by the Jointer Submarine Cable's department. Mother states that there are questionable suicidal and homicidal ideations. Assessment What has happened this shift: Patient isolated to her room the entirety of the shift except to come and ask for a cheese stick. Pt is calm and cooperative with 1:1 assessment and makes good eye contact. She talks a little more than last night and says that she is feeling "pretty good today and has been accepting where she is at in life right now." Denies SI/HI/AH/VH at this time. PT's HS blood glucose was 113. S/I, H/I: denies A/VH: denies Sleep: see sleep assessment ADL's: Independent Group attendance: NA Were meds taken: yes Any med S/E none reported, none observed Mental Status Exam Appearance: neat and clean Eye contact: direct Behavior: cooperative, isolative Speech: normal rate and volume Affect: flat Mood: "pretty good" Thought process: linear Thought Content: getting ready for bed Cognition: A+OX4 Insight:fair Judgment:fair Interventions PRN's used:NA Therapeutic interventions: Introduced self and established rapport, maintained a safe and supportive environment, provided clear and simple instructions medication administration/education/monitoring, Q15 min safety checks. Restraints/seclusion/emergency medication: N/A Justification of Continued Inpatient Treatment: Patient requires interruption of current crisis, medication adjustments in a safe and therapeutic environment. Addendum: 07/25/19 at 0602 by Aida Lacy RN Pt woke up at 0200 and reported her BS was low. BS was 38. Pt given 2 orange juice, pt states this is what works best for her at home. Rechecked in 15 minutes, 108. Physician notified. Checked once again at 0400 108.
[2019-07-25] MEDS: insulin Lispro (HumaLOG) vial - multi-dose SQ SCH ×2 (07:00→12:00)
[2019-07-25] MEDS: BASAGLAR INSULIN SQ SCH (07:19)
[2019-07-25 08:00] VITALS: BP 122/78
[2019-07-25] MEDS: haloperidol 5mg tablet PO SCH (08:20)
[2019-07-25] MEDS: venlafaxine XR 37.5mg cap (Q24H) PO SCH (08:20)
[2019-07-25] MEDS: clonazePAM 0.5mg tablet PO PRN (08:53)
--- NOTE | 2019-07-25 09:00 | NUR ---
Nursing Note: Staff called [facility] ([phone]) which pt's medications had been previously called in to, to cancel an order from FELISA Aguilar for Clonazepam 0.5mg. Pt. already has a bottle of 1mg Clonazepam tablets which was filled on 07/16/19 from another doctor. Pt. has 15 of these 1mg tablets of Clonazepam remaining, and FELISA Aguilar would like pt. to use these tablets, but break them in half. Pt. provided education and she reported understanding.
[2019-07-25] MEDS: busPIRone 15mg tablet PO SCH ×2 (09:25→13:23)
--- NOTE | 2019-07-25 10:42 | NUR ---
Eating well, average PO intake of 75-100% carb controlled diet with hyperglycemic protocol for type 1 DM. A1c 7.2. Had low of 38 on 07/24 which was corrected by nursing staff. Recommend: 1. continue carb controlled diet 2. weekly wts Addendum: 07/25/19 at [address] Amended: Links added.
--- NOTE | 2019-07-25 11:11 | NUR ---
Nursing Progress Note: Legal hold: Voluntary Client on voluntary/involuntary status for GD/DTO Report received from nurse with use of SBAR: OSMANI Parra Why are they here: Patient is a 23 year old female who is brought to the ER by the Application Support Lead's office from home for acute psychosis. The patient's mother states that the patient has a known history of schizophrenia and she is unaware of the medications that the patient has been taking. The patient has known history of type I diabetes and she does take insulin. The patient was found swimming in her neighbors pool and when the Application Support Lead showed up she began yelling and screaming. The patient yelled and screamed, and continued to do so r/t her arrest during her car ride and arrival at the hospital. The patient was placed on a 5150 by the Application Support Lead's department. Mother states that there are questionable suicidal and homicidal ideations. Assessment What has happened this shift: Received pt. laying in bed sleeping at the beginning of the shift, this technical document writer awoke her to obtain BS which was 88m and pt. denied any s/s of hypoglycemia. 1:1 completed at bedside, pt. continues to deny all MH s/s, however admits that she is feeling anxious r/t going to [facility] today. Pt. states, "I wish I could go back home to my family." However, she is hopeful that she can go and visit her family once the Sylvester virus restrictions are lifted. PRN Clonazepam administered with effectiveness, and pt. able to nap after breakfast. Will continue to monitor. S/I, H/I: Denies A/VH: Denies, pt. does not appear internally preoccupied Sleep: Pt. reports she did not sleep well r/t episode of hypoglycemia during the night ADL's: Independent Group attendance: No Were meds taken: Yes Any med S/E: None Mental Status Exam Appearance: Neat and appropriately dressed Eye contact: Good Behavior: Cooperative and anxious Speech: Soft, WNL Mood: Pleasant Affect: Blunted Thought process: Linear Thought Content: Some anxiety r/t D/C Cognition: A&O X4 Insight: Fair Judgment: Fair Interventions PRN's used: Clonazepam Therapeutic interventions: Maintained a safe and supportive environment, ensured contract for safety, monitored blood glucose and monitored pt's self-administration of insulin as needed, monitored behaviors and need for intervention, provided clear and simple instructions, and maintained a safe and supportive environment. Restraints/seclusion/emergency medication: N/A Justification of Continued Inpatient Treatment: Pt. will discharge today to [facility].
--- NOTE | 2019-07-25 15:06 | NUR ---
Discharge Note: Pt. discharged at approximately 1506, escorted off the unit by Jax Courtney. Pt. is being picked up by and transported to [facility] where she will be staying. She is able to contract for safety. Discharge instructions, medications, and follow-up reviewed with pt. and she reports understanding. Belongings inventoried by jax and returned to pt. No smoking cessation needed, and pt. sent with filled prescriptions which were picked-up by the social services assistant earlier.
== END 2019-07-25 15:05 | disposition short-term general hospital (02) | DRG 751 ==
LOC: ADULT MH 21:40
PROVIDERS: ADMIT Psychiatry & Neurology Psychiatry; ATTEND Psychiatry & Neurology Psychiatry
DX: F33.2 Major depressive disorder, recurrent severe without psychotic features (principal); F25.1 Schizoaffective disorder, depressive type; F41.9 Anxiety disorder, unspecified; E10.9 Type 1 diabetes mellitus without complications; Z79.4 Long term (current) use of insulin; Z83.3 Family history of diabetes mellitus
CPT/HCPCS: 36415; 71045; 82948; 83036; 87081; J1815

== ENCOUNTER 2019-09-05 16:10 | Emergency (ER) | payer MEDICAID ==
[~2019-09-05] VITALS: Ht 175.3 cm; Wt 90.0 kg
[~2019-09-05 16:10] MED LIST changes: -ARIP10TA15 PO; -ARIP400S2 IM; +BUS15T PO; -BUSP30TA3 PO; -CLON-369 PO; +CLON0.5T4 PO; +EFF37.5XRC PO; -HALO10TA13 PO; +HALO5TAB PO; -LANTUS SQ; +TRAZ-251 PO
[2019-09-05 17:30] LABS: URINE HCG NEGATIVE (NEG)
[2019-09-05 17:41] LABS: BASOPHILS % (AUTO) 0.4 % (0-1); EOSINOPHILS # (AUTO) 0.1 X10'3 (0-0.9); EOSINOPHILS % (AUTO) 0.5 % (0-6); HEMATOCRIT 41.1 % (35.0-45.0); HEMOGLOBIN 13.5 g/dl (12.0-16.0); LYMPHOCYTES # (AUTO) 1.9 X10'3 (1.1-4.8); LYMPHOCYTES % (AUTO) 15.5 % (21-51); MEAN CORPUSCULAR HEMOGLOBIN 29.3 PG (27.0-31.0); MEAN CORPUSCULAR HGB CONC 32.9 g/dL (33.0-36.5); MEAN CORPUSCULAR VOLUME 89.1 FL (78-98); MEAN PLATELET VOLUME 8.6 FL (7.4-10.4); MONOCYTES # (AUTO) 0.8 X10'3 (0-0.9); MONOCYTES % (AUTO) 6.7 % (2-12); NEUTROPHILS # (AUTO) 9.3 X10'3 (1.8-7.7); NEUTROPHILS % (AUTO) 76.9 % (42-75); PLATELET COUNT 263 X10'3 (140-440); RED BLOOD COUNT 4.62 X10'6 (4.20-5.60); RED CELL DISTRIBUTION WIDTH 13.3 % (11.5-14.5); WHITE BLOOD COUNT 12.1 X10'3 (4.5-11.0)
[2019-09-05 17:42] LABS: URINE AMPHETAMINE SCREEN NEGATIVE (Neg); URINE BARBITUATE SCREEN NEGATIVE (Neg); URINE BENZODIAZEPINES SCREEN NEGATIVE (Neg); URINE CANNABINOID SCREEN NEGATIVE (Neg); URINE COCAINE SCREEN NEGATIVE (Neg); URINE METHADONE SCREEN NEGATIVE (Neg); URINE OPIATE SCREEN NEGATIVE (Neg); URINE PHENCYCLIDINE SCREEN NEGATIVE (Neg)
[2019-09-05 17:52] LABS: ALANINE AMINOTRANSFERASE 18 U/L (12-78); ALBUMIN 4.4 G/DL (3.4-5.0); ALBUMIN/GLOBULIN RATIO 1.3 (1.1-1.5); ALKALINE PHOSPHATASE 98 IU/L (46-116); ANION GAP 10 (8-16); ASPARTATE AMINO TRANSFERASE 13 U/L (10-37); BILIRUBIN,TOTAL 0.2 MG/DL (0.1-1.0); BLOOD UREA NITROGEN 11 MG/DL (7-18); BUN/CREATININE RATIO 12.5 (6.6-38.0); CALCIUM 8.4 MG/DL (8.5-10.1); CHLORIDE 105 MMOL/L (99-107); CREATININE 0.88 MG/DL (0.40-0.90); GLUCOSE 172 MG/DL (70-104); POTASSIUM 3.8 MMOL/L (3.5-5.1); SODIUM 141 MMOL/L (135-145); TOTAL CARBON DIOXIDE 26.5 MMOL/L (24-32); TOTAL PROTEIN 7.8 G/DL (6.4-8.2); eGFR 78 ML/MIN
[2019-09-05 17:53] LABS: ETHANOL < 0.010 GM/DL (0.0-0.010)
--- NOTE | 2019-09-05 18:29 | NUR ---
PACKET FAXED TO [facility]
[2019-09-05] MEDS ORDERED: diphenhydrAMINE 25mg capsule PO ONE (18:55)
[2019-09-05] MEDS ORDERED: haloperidol 5mg tablet PO ONE (18:55)
[2019-09-05] MEDS ORDERED: BUSP15TA3 PO (18:56)
[2019-09-05] MEDS ORDERED: TRAZ-251 PO (18:56)
[2019-09-05] MEDS ORDERED: HALO10TA13 PO (18:56)
[2019-09-05] MEDS ORDERED: CLON-369 PO (18:56)
--- NOTE | 2019-09-05 18:58 | NUR ---
Dulring assisting patient to walk to ER overflow see went stiff and fell to the floor. The patient was lowered to the floor by this nurse W/ no signs of injury noted FELISA weeks was informed no new orders.
--- NOTE | 2019-09-05 19:05 | NUR ---
Pt. violently screaming and threatening staff. Security system activated and now at bedside. Behavioral restraints being applied at the moment. Orders received from to give ativan 2mg IV, benadryl 50 mg IV and haldol 10mg IV. Addendum: 09/05/19 at 1941 by PMAZO *correction* Medications given via IM route not IV.
[2019-09-05] MEDS ORDERED: diphenhydrAMINE 50 mg/ml inj IM ONE (19:10)
[2019-09-05] MEDS ORDERED: LORazepam 2 mg/ml vial IM ONE (19:10)
[2019-09-05] MEDS ORDERED: haloperidol lactate 5mg/ml inj IM ONE (19:10)
[2019-09-05] MEDS ORDERED: OLANZapine **IM** 10 mg inj. IM PRN (19:15)
--- NOTE | 2019-09-05 20:52 | NUR ---
Pt. requested to go to the bathroom at this time. Security called to bedside for assistance. RN and tech stayed close to the pt. Pt. seems to be following commands better upon return to her bed. Restraints remained off at this time. Pt. will be observed closely.
[2019-09-05] MEDS ORDERED: haloperidol 5mg tablet PO SCH (21:00)
[2019-09-05] MEDS ORDERED: dextrose 50%-water 50ml dispensing syringe IV PRN ×2 (21:05)
[2019-09-05] MEDS ORDERED: MESSAGE TO PHARMACY PO ONE (21:05)
[2019-09-05] MEDS ORDERED: glucagon, human recombinant 1mg kit SUBCUT PRN (21:05)
[2019-09-05] MEDS ORDERED: dextrose ORAL solution 15 GM/59 ML bottle PO PRN ×2 (21:05)
[2019-09-05] MEDS ORDERED: insulin Lispro (HumaLOG) vial - multi-dose SQ SCH (21:05)
--- NOTE | 2019-09-05 21:46 | NUR ---
Pt. sleeping on L side. She appears to be comfortable. No concerns at this time.
[2019-09-05] MEDS ORDERED: traZODone 50mg tablet PO PRN (22:10)
[2019-09-05] MEDS ORDERED: clonazePAM 0.5mg tablet PO PRN (22:10)
--- NOTE | 2019-09-06 00:23 | NUR ---
Pt. provided with supervision while using the bathroom. She states that she feels tired, but otherwise feels ok at this time. Fluids encouraged. Pt. returned to bed and to sleep.
--- NOTE | 2019-09-06 01:08 | NUR ---
Pt. stated that she is hungry and requested food. Pt. provided with 3 string cheeses and a turkey sandwich.
--- NOTE | 2019-09-06 02:32 | NUR ---
Pt. continues to sleep. Even chest rise apparent. No s/s of discomfort.
--- NOTE | 2019-09-06 03:45 | NUR ---
Pt. continues to sleep.
--- NOTE | 2019-09-06 04:45 | NUR ---
Pt. continues to sleep at this time.
[2019-09-06 05:17] VITALS: BP 107/67
--- NOTE | 2019-09-06 05:20 | NUR ---
Pt. is requesting for her BS to be checked. When asked if she's experiencing any symptoms of hypo/hyperglycemia, she states that she is just concerned due to the fact that she had carbs earlier (turkey sandwich) without receiving insulin dose. Pt. otherwise denies any symptoms. Her VS was also taken at this time and WNL. BS 315 at this time. Pt. given fluids and education regarding diabetic protocol within the hospital.
--- NOTE | 2019-09-06 06:59 | NUR ---
pt sleeping in bed no distress noted.
--- NOTE | 2019-09-06 07:23 | NUR ---
CALLED PHARMACY TO BRING DOWN INSULIN. STATING MAKING NOW. WILL SEND TECH TO PICKUP.
[2019-09-06] MEDS ORDERED: busPIRone 15mg tablet PO SCH (08:00)
--- NOTE | 2019-09-06 08:34 | NUR ---
packet refaxed per [facility] recommendation.
--- NOTE | 2019-09-06 08:50 | NUR ---
faxc confirmed with [facility]
--- NOTE | 2019-09-06 10:02 | NUR ---
pt sleeping in lft lateral position in her bed .RR unlabored and even .no distress noted will cont to monitor.
--- NOTE | 2019-09-06 11:10 | NUR ---
[facility] spoke to pt and ready to d/c patient home.recevied the discharge paper ,pt belonging given to the pt also given the phone so she can make a phone call to friend to pick her up.
[2019-09-06] MEDS ORDERED: insulin glargine (Lantus) pen - multi-dose SQ SCH (21:00)
== END 2019-09-06 11:23 | disposition home or self-care (01) ==
LOC: ER 16:11
DX: F23 Brief psychotic disorder (principal); Z79.4 Long term (current) use of insulin; Z79.899 Other long term (current) drug therapy
CPT/HCPCS: 36415; 80053; 80305; 80320; 81025; 82948; 83036; 85025; 96372; 99285; J1200; J1630; J2060; J3490; 99284; J1815

== ENCOUNTER 2019-09-09 18:02 | Emergency (ER) | payer MEDICAID ==
[~2019-09-09 18:02] MED LIST changes: -BUS15T PO; +BUSP15TA3 PO; +CLON-369 PO; -CLON0.5T4 PO; -EFF37.5XRC PO; +HALO10TA13 PO; -HALO5TAB PO; -INSU100I45 SQ
== END 2019-09-09 18:14 | disposition left against medical advice (07) ==
LOC: ER 18:03
DX: R45.851 Suicidal ideations (principal); Z53.21 Procedure and treatment not carried out due to patient leaving prior to being seen by health care provider

== ENCOUNTER 2019-12-30 09:33 | Inpatient (IN) | payer MEDICAID ==
[~2019-12-30] VITALS: Ht 172.7 cm; Wt 80.0 kg
--- NOTE | 2019-12-30 10:30 | NUR ---
patient arrived in c collar placed pre hospital due to being found down
[2019-12-30 10:37] LABS: BASOPHILS # (AUTO) 0.1 X10'3 (0-0.2); BASOPHILS % (AUTO) 0.5 % (0-1); EOSINOPHILS % (AUTO) 0.2 % (0-6); HEMATOCRIT 40.3 % (35.0-45.0); HEMOGLOBIN 13.2 g/dl (12.0-16.0); LYMPHOCYTES # (AUTO) 1.2 X10'3 (1.1-4.8); LYMPHOCYTES % (AUTO) 10.1 % (21-51); MEAN CORPUSCULAR HEMOGLOBIN 29.3 PG (27.0-31.0); MEAN CORPUSCULAR HGB CONC 32.6 g/dL (33.0-36.5); MEAN CORPUSCULAR VOLUME 89.9 FL (78-98); MEAN PLATELET VOLUME 9.3 FL (7.4-10.4); MONOCYTES # (AUTO) 0.4 X10'3 (0-0.9); MONOCYTES % (AUTO) 3.4 % (2-12); NEUTROPHILS % (AUTO) 85.8 % (42-75); PLATELET COUNT 279 X10'3 (140-440); RED BLOOD COUNT 4.49 X10'6 (4.20-5.60); WHITE BLOOD COUNT 11.7 X10'3 (4.5-11.0)
[2019-12-30 10:47] LABS: HCG SERUM QL NEGATIVE
[2019-12-30 10:57] LABS: ALANINE AMINOTRANSFERASE 20 U/L (12-78); ALBUMIN 3.9 G/DL (3.4-5.0); ALBUMIN/GLOBULIN RATIO 1.1 (1.1-1.5); ALKALINE PHOSPHATASE 107 IU/L (46-116); ANION GAP 17 (8-16); ASPARTATE AMINO TRANSFERASE 17 U/L (10-37); BILIRUBIN,TOTAL 0.4 MG/DL (0.1-1.0); BLOOD UREA NITROGEN 13 MG/DL (7-18); BUN/CREATININE RATIO 17.6 (6.6-38.0); CHLORIDE 104 MMOL/L (99-107); CREATININE 0.74 MG/DL (0.40-0.90); ETHANOL 0.331 GM/DL (0.0-0.010); GLUCOSE 400 MG/DL (70-104); POTASSIUM 4.2 MMOL/L (3.5-5.1); SODIUM 138 MMOL/L (135-145); TOTAL CARBON DIOXIDE 17.3 MMOL/L (24-32); TOTAL PROTEIN 7.5 G/DL (6.4-8.2); eGFR > 90 ML/MIN
[2019-12-30 11:03] LABS: CLARITY,URINE CLEAR (Clear); COLOR,URINE STRAW (Yellow); GLUCOSE, URINE >=1000 mg/dl (Neg); KETONES,URINE TRACE mg/dl (Neg); LEUKOCYTE ESTERASE ,URINE NEGATIVE (Neg); NITRITES, URINE NEGATIVE (Neg); OCCULT BLOOD,URINE NEGATIVE (Neg); PH,URINE 5.5 (4.8-8.0); PROTEIN,URINE NEGATIVE (Neg); UROBILINOGEN,URINE 0.2 E.U/dL (0.2-1.0)
[2019-12-30 11:04] LABS: UA COLLECTION TYPE STRAIGHT CATH
--- NOTE | 2019-12-30 11:06 | NUR ---
patient to ct scan
--- NOTE | 2019-12-30 11:07 | NUR ---
informed md that blood sugar from iv start labs at 10:22 was 400
[2019-12-30 11:10] LABS: URINE AMPHETAMINE SCREEN NEGATIVE (Neg); URINE BARBITUATE SCREEN NEGATIVE (Neg); URINE BENZODIAZEPINES SCREEN NEGATIVE (Neg); URINE CANNABINOID SCREEN NEGATIVE (Neg); URINE COCAINE SCREEN NEGATIVE (Neg); URINE METHADONE SCREEN NEGATIVE (Neg); URINE OPIATE SCREEN NEGATIVE (Neg); URINE PHENCYCLIDINE SCREEN NEGATIVE (Neg)
--- NOTE | 2019-12-30 11:15 | NUR ---
asked md if she would like fluids due to patients hr in the 150's. no orders
[2019-12-30 11:22] LABS: BACTERIA,URINE FEW /HPF (Neg); RBC,URINE 0-2 /HPF (0-2); SQUAMOUS EPITHELIAL CELL,UR FEW /LPF (FEW); WBC,URINE 0-4 /HPF (0-4)
--- NOTE | 2019-12-30 11:50 | NUR ---
c collar ok to discontinue per dr gooden per ct neck
[2019-12-30] MEDS ORDERED: normal saline 1000ML IV soln IVB ONE ×2 (11:55→14:20)
--- NOTE | 2019-12-30 12:06 | NUR ---
FATHER GURMEET SALCIDO [phone] IN ROOM. FATHER WANTS COBAN REMOVED FROM IV SITES. I EXPLAINED TO HIM THAT HIS DAUGHTER WAS PULLING AT HER IV SITES AND EKG AND EVERYTHING ATTACHED TO HER. HE INSISTED BECAUSE "EVERY LITTLE IRRITANT INDUCES HER PHYSCOSIS". I REMOVED THE COBAN AND PATIENT HAS SALINE RUNNING IN BOTH IVS PATIENT NOW SPEAKING IN ALMOST FULL SENTENCES AND NOW KNOWS HER DATE OF
--- NOTE | 2019-12-30 14:28 | NUR ---
SPOKE WITH MD, 2 LITERS MORE FLUID WAS ORDERED
[2019-12-30] MEDS ORDERED: haloperidol 5mg tablet PO ONE ×3 (15:10→17:05)
[2019-12-30] MEDS ORDERED: LORazepam 2 mg/ml vial IV ONE ×2 (15:15→16:35)
[2019-12-30] MEDS ORDERED: INSU100I39 SQ (16:46)
[2019-12-30] MEDS ORDERED: PROP10TA10 PO (16:46)
[2019-12-30] MEDS ORDERED: CARI1.5C PO (16:46)
[2019-12-30] MEDS ORDERED: HALO5TAB PO ×2 (16:46)
[2019-12-30] MEDS ORDERED: CLON-371 PO (16:46)
[2019-12-30] MEDS ORDERED: magnesium hydroxide 30ml (MOM) UD suspension PO PRN (16:50)
[2019-12-30] MEDS ORDERED: metoclopramide 5 mg/ml inj IV PRN (16:50)
[2019-12-30] MEDS ORDERED: acetaminophen 325mg tablet PO PRN ×2 (16:50)
[2019-12-30] MEDS ORDERED: glucagon, human recombinant 1mg kit SUBCUT PRN (16:50)
[2019-12-30] MEDS ORDERED: mag hydrox/Alum hydrox/simeth 30ml oral suspension PO PRN (16:50)
[2019-12-30] MEDS ORDERED: MESSAGE TO PHARMACY PO ONE (16:50)
[2019-12-30] MEDS ORDERED: morphine 2 MG/ML inj. syringe IV PRN ×2 (16:50)
[2019-12-30] MEDS ORDERED: dextrose ORAL solution 15 GM/59 ML bottle PO PRN ×2 (16:50)
[2019-12-30] MEDS ORDERED: HYDROcodone/acetaminophen 10/325mg tab PO PRN (16:50)
[2019-12-30] MEDS ORDERED: ondansetron/PF 4mg/2ml inj IV PRN (16:50)
[2019-12-30] MEDS ORDERED: HYDROcodone/acetaminophen 5mg/325mg tablet PO PRN (16:50)
[2019-12-30] MEDS ORDERED: dextrose 50%-water 50ml dispensing syringe IV PRN ×2 (16:50)
[2019-12-30] MEDS ORDERED: iohexol 350MG/ML 100ml bottle IV ONE (17:01)
[2019-12-30 17:12] LABS: HEMOGLOBIN A1C 7.1 % (4.5-6.2)
--- NOTE | 2019-12-30 18:00 | NUR ---
TO CT SCAN
[2019-12-30 18:10] LABS: D-DIMER 1.02 MG/L FEU (0-0.50)
[2019-12-30] MEDS ORDERED: propranolol 10mg tablet PO PRN (18:45)
[2019-12-30] MEDS ORDERED: traZODone 50mg tablet PO PRN (18:45)
[2019-12-30] MEDS ORDERED: clonazePAM 1mg tablet PO PRN (18:45)
[2019-12-30] MEDS ORDERED: haloperidol 5mg tablet PO PRN ×2 (18:45→19:15)
[2019-12-30] MEDS ORDERED: magnesium Cl slow-release 64mg tablet PO PRN (19:05)
[2019-12-30] MEDS ORDERED: potassium CL 10mEq/100ml bag 100 ML IV PRN (19:05)
[2019-12-30] MEDS ORDERED: potassium Cl 20 mEq SR tablet PO PRN ×2 (19:05)
[2019-12-30] MEDS: normal saline 1000ml 1,000 ML IV SCH (19:05)
[2019-12-30] MEDS ORDERED: magnesium 4gm in 100ml NS 100 ML IV PRN (19:05)
[2019-12-30] MEDS: K and/or MAG REPLACEMENT MC SCH (20:00)
[2019-12-30] MEDS: haloperidol 5mg tablet PO SCH ×2 (20:00→21:17)
[2019-12-30 21:00] VITALS: BP 125/89
[2019-12-30] MEDS: insulin glargine (Lantus) pen - multi-dose SQ SCH (21:00)
[2019-12-30] MEDS: busPIRone 15mg tablet PO SCH (21:17)
[2019-12-31 00:15] VITALS: BP 138/81
[2019-12-31] MEDS: propranolol 10mg tablet PO SCH ×4 (00:16→19:32)
--- NOTE | 2019-12-31 01:10 | NUR ---
Pt is agitated, aggressive, and having hallucinations. Paged Dr. Lan to request an order for restraints.
--- NOTE | 2019-12-31 02:00 | NUR ---
Pt refused vital signs.
[2019-12-31] MEDS: LORazepam 2 mg/ml vial IV PRN ×2 (02:22→10:07)
[2019-12-31] MEDS: normal saline 1000ml 1,000 ML IV SCH ×3 (02:50→22:50)
[2019-12-31 06:00] VITALS: BP 115/61
[2019-12-31 06:13] LABS: BASOPHILS % (AUTO) 0.5 % (0-1); EOSINOPHILS % (AUTO) 0.3 % (0-6); HEMATOCRIT 34.3 % (35.0-45.0); HEMOGLOBIN 11.6 g/dl (12.0-16.0); LYMPHOCYTES # (AUTO) 1.4 X10'3 (1.1-4.8); MEAN CORPUSCULAR HEMOGLOBIN 29.9 PG (27.0-31.0); MEAN CORPUSCULAR HGB CONC 33.8 g/dL (33.0-36.5); MEAN CORPUSCULAR VOLUME 88.6 FL (78-98); MEAN PLATELET VOLUME 8.9 FL (7.4-10.4); MONOCYTES # (AUTO) 0.4 X10'3 (0-0.9); MONOCYTES % (AUTO) 4.9 % (2-12); NEUTROPHILS # (AUTO) 6.1 X10'3 (1.8-7.7); NEUTROPHILS % (AUTO) 76.3 % (42-75); PLATELET COUNT 244 X10'3 (140-440); RED BLOOD COUNT 3.87 X10'6 (4.20-5.60); RED CELL DISTRIBUTION WIDTH 13.7 % (11.5-14.5)
[2019-12-31 06:25] LABS: ALBUMIN 3.4 G/DL (3.4-5.0); ANION GAP 11 (8-16); BLOOD UREA NITROGEN 10 MG/DL (7-18); BUN/CREATININE RATIO 12.8 (6.6-38.0); CALCIUM 8.9 MG/DL (8.5-10.1); CHLORIDE 106 MMOL/L (99-107); CREATININE 0.78 MG/DL (0.40-0.90); GLUCOSE 282 MG/DL (70-104); MAGNESIUM 1.7 MG/DL (1.5-2.4); PHOSPHORUS 2.6 MG/DL (2.3-4.5); POTASSIUM 4.1 MMOL/L (3.5-5.1); SODIUM 139 MMOL/L (135-145); eGFR 89 ML/MIN
--- NOTE | 2019-12-31 06:28 | NUR ---
Patient in room PCU 3013. I have received report from Marianne and had the opportunity to ask questions and assume patient care.
--- NOTE | 2019-12-31 06:28 | NUR ---
Problems reprioritized. Patient report given, questions answered & plan of care reviewed with OSMANI Harvey.
[2019-12-31] MEDS: CARIPRAZINE 1.5 MG CAPSULE PO SCH (08:00)
[2019-12-31] MEDS: busPIRone 15mg tablet PO SCH ×4 (08:00→19:31)
[2019-12-31] MEDS: K and/or MAG REPLACEMENT MC SCH ×2 (08:00→19:20)
[2019-12-31] MEDS: sodium bicarbonate 650mg tablet PO SCH ×3 (08:00→19:32)
[2019-12-31] MEDS: haloperidol 5mg tablet PO SCH ×3 (08:00→19:32)
--- NOTE | 2019-12-31 08:00 | NUR ---
Patient was given orange juice before AM blood sugar reading so the 244 is not accurate. will check lunch to see if patient needs to meet protocol.
[2019-12-31 10:00] VITALS: BP 107/50
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
--- NOTE | 2019-12-31 10:35 | NUR ---
Page Sent promotional table spacer PAGER ID: [phone] MESSAGE: [id number] Key Burt Patient is extremely agitated Yelling trying to pinch sitter can I get a order for more ativan or maybe add halodol IM Q6 since she spits out the pills. #[id number] Candice
--- NOTE | 2019-12-31 11:25 | NUR ---
DM Consult: A1C 7.1. Pt admit DX etoh 0.331 on 1798 hold w/ psych hx per EMR. Hx T1DM; currently AOx2 and not appropriate for DM ed at this time. TAMAR d/w RN regarding thiamin, folic, and MVI supplementation for etoh if MD agreeable. To f/u 01/03 for initial assessment. Addendum: 12/31/19 at [address] Amended: Links added.
[2019-12-31] MEDS: insulin Lispro (HumaLOG) vial - multi-dose SQ SCH ×3 (13:05→22:23)
[2019-12-31 15:00] VITALS: BP 103/59
[2019-12-31 18:00] VITALS: BP 110/61
--- NOTE | 2019-12-31 18:25 | NUR ---
Problems reprioritized. Patient report given, questions answered & plan of care reviewed with Pamela.
[2019-12-31] MEDS: heparin, porcine 5000 units/ml vial SQ SCH (19:31)
[2019-12-31 22:00] VITALS: BP 102/58
[2019-12-31] MEDS: insulin glargine (Lantus) pen - multi-dose SQ SCH (22:22)
[2020-01-01 02:00] VITALS: BP 102/60
--- NOTE | 2020-01-01 03:00 | NUR ---
Restraints discontinue to right arm @0300. Patient not pulling lines, and able to follow commands. Patient more alert and oriented. Able to state her name, , where she is at, what happen that cause her to come to the hospital. Patient also agreeable that if she does become aggressive and impulsive and start pulling her IV line with the sitter nurse will call MD for orders to reapply restraints.
[2020-01-01 06:00] VITALS: BP 111/67
--- NOTE | 2020-01-01 06:31 | NUR ---
Problems reprioritized. Patient report given, questions answered & plan of care reviewed with Evelyn KEEN.
--- NOTE | 2020-01-01 06:40 | NUR ---
Patient in room U 3013. I have received report from LISA KEEN and had the opportunity to ask questions and assume patient care. Addendum: 01/01/20 at 0642 by Maureen Gunn RN Amended: Links added.
[2020-01-01] MEDS: sodium bicarbonate 650mg tablet PO SCH ×2 (07:31→12:59)
[2020-01-01] MEDS: busPIRone 15mg tablet PO SCH ×2 (07:31→12:59)
[2020-01-01] MEDS: haloperidol 5mg tablet PO SCH (07:31)
[2020-01-01] MEDS: CARIPRAZINE 1.5 MG CAPSULE PO SCH (07:33)
[2020-01-01] MEDS: heparin, porcine 5000 units/ml vial SQ SCH (07:35)
[2020-01-01] MEDS: propranolol 10mg tablet PO SCH ×2 (07:35→13:00)
[2020-01-01] MEDS: insulin Lispro (HumaLOG) vial - multi-dose SQ SCH ×2 (07:40→13:05)
[2020-01-01] MEDS: K and/or MAG REPLACEMENT MC SCH (08:00)
[2020-01-01 08:22] LABS: BASOPHILS % (AUTO) 0.7 % (0-1); EOSINOPHILS # (AUTO) 0.2 X10'3 (0-0.9); EOSINOPHILS % (AUTO) 2.6 % (0-6); HEMOGLOBIN 12.5 g/dl (12.0-16.0); LYMPHOCYTES # (AUTO) 2.2 X10'3 (1.1-4.8); LYMPHOCYTES % (AUTO) 31.7 % (21-51); MEAN PLATELET VOLUME 9.4 FL (7.4-10.4); MONOCYTES # (AUTO) 0.5 X10'3 (0-0.9); MONOCYTES % (AUTO) 7.1 % (2-12); NEUTROPHILS # (AUTO) 4.1 X10'3 (1.8-7.7); NEUTROPHILS % (AUTO) 57.9 % (42-75); PLATELET COUNT 261 X10'3 (140-440); RED BLOOD COUNT 4.32 X10'6 (4.20-5.60); RED CELL DISTRIBUTION WIDTH 13.9 % (11.5-14.5)
[2020-01-01 08:44] LABS: ALBUMIN 3.6 G/DL (3.4-5.0); ANION GAP 10 (8-16); BLOOD UREA NITROGEN 9 MG/DL (7-18); CALCIUM 8.5 MG/DL (8.5-10.1); CHLORIDE 105 MMOL/L (99-107); CREATININE 0.69 MG/DL (0.40-0.90); GLUCOSE 187 MG/DL (70-104); MAGNESIUM 1.5 MG/DL (1.5-2.4); POTASSIUM 3.9 MMOL/L (3.5-5.1); SODIUM 141 MMOL/L (135-145); TOTAL CARBON DIOXIDE 25.6 MMOL/L (24-32); eGFR > 90 ML/MIN
[2020-01-01] MEDS: normal saline 1000ml 1,000 ML IV SCH (08:50)
[2020-01-01 11:00] VITALS: BP 119/78
--- NOTE | 2020-01-01 11:00 | NUR ---
Problems reprioritized. Patient report given, questions answered & plan of care reviewed with LISSY KEEN. Addendum: 01/01/20 at 1125 by Maureen Gunn RN Amended: Links added.
[2020-01-01] MEDS ORDERED: haloperidol 5mg tablet PO SCH (13:00)
== END 2020-01-01 14:25 | disposition home or self-care (01) | DRG 420 ==
LOC: ER 09:33 → ED HOLD 16:48 → PCU 3S 21:07 → OBSVTOIN 12-31 08:40
PROVIDERS: ADMIT Internal Medicine; ATTEND Internal Medicine
DX: E11.649 Type 2 diabetes mellitus with hypoglycemia without coma (principal); F10.929 Alcohol use, unspecified with intoxication, unspecified; F20.9 Schizophrenia, unspecified; R00.0 Tachycardia, unspecified; Z79.4 Long term (current) use of insulin
CPT/HCPCS: 36415; 70450; 71275; 72125; 80048; 80053; 80305; 80320; 81001; 82009; 82948; 83036; 83735; 84100; 84145; 84703; 85025; 85379; 87081; 93005; 97116; 97161; 97530; 99285; G0378; J1644; J1815; J2060; J7030; Q9967

== ENCOUNTER 2020-01-10 14:31 | Emergency (ER) | payer MEDICAID ==
[~2020-01-10] VITALS: Ht 175.3 cm; Wt 82.7 kg
[~2020-01-10 14:31] MED LIST changes: +CARI1.5C PO; -CLON-369 PO; +CLON-371 PO; +HALO5TAB PO; +INSU100I39 SQ; +PROP10TA10 PO
--- NOTE | 2020-01-10 15:48 | NUR ---
Received pt straight back by customer care assistant . Pt extremely paranoid with thought blocking and resistance to answering medications. Pt stated, "you scare me" Pt staring with paranoid gaze. Pt initially refusing to change into hospital clothes but agreeable eventually to put on shorts. History obtained through both mom and dad. Pt apparently is Type II DM and has a monitor on her abd which she won't show. Pt also has celiac so carb control diet will be ordered.
--- NOTE | 2020-01-10 16:14 | NUR ---
According to mom, pt is hearing voices all the time telling her not to trust others or to hurt herself.
--- NOTE | 2020-01-10 16:15 | NUR ---
Dad: Douglas: Mom: Brianna:
[2020-01-10] MEDS ORDERED: haloperidol 5mg tablet PO PRN (16:20)
[2020-01-10] MEDS ORDERED: LORazepam 2 mg/ml vial IM ONE (16:50)
[2020-01-10] MEDS ORDERED: diphenhydrAMINE 50 mg/ml inj IM ONE (16:50)
[2020-01-10] MEDS: busPIRone 15mg tablet PO SCH ×2 (17:00→22:58)
--- NOTE | 2020-01-10 17:00 | NUR ---
Pt offered PRN haldol and PRN klonopin and routine buspar.Pt refused. Pt ranting and threatening and posturing towards staff. Pt given IM ativan and IM benadryl per PA order. Pt did not fight.
[2020-01-10] MEDS ORDERED: haloperidol lactate 5mg/ml inj IM ONE (17:20)
--- NOTE | 2020-01-10 17:39 | NUR ---
Pt continued to escalate and was screaming at the top of her lungs, threatening staff and posturing and striking out at staff. Pt placed in 4 pt restraints at 1715. PA came to evaluate pt at 1723. Pt continues to scream and threaten staff. No injury sustained.
[2020-01-10 18:10] LABS: BASOPHILS # (AUTO) 0.1 X10'3 (0-0.2); BASOPHILS % (AUTO) 0.8 % (0-1); EOSINOPHILS % (AUTO) 0.1 % (0-6); HEMATOCRIT 37.2 % (35.0-45.0); HEMOGLOBIN 12.5 g/dl (12.0-16.0); LYMPHOCYTES # (AUTO) 1.5 X10'3 (1.1-4.8); LYMPHOCYTES % (AUTO) 16.9 % (21-51); MEAN CORPUSCULAR HEMOGLOBIN 29.7 PG (27.0-31.0); MEAN CORPUSCULAR HGB CONC 33.5 g/dL (33.0-36.5); MEAN CORPUSCULAR VOLUME 88.8 FL (78-98); MEAN PLATELET VOLUME 8.9 FL (7.4-10.4); MONOCYTES # (AUTO) 0.7 X10'3 (0-0.9); MONOCYTES % (AUTO) 7.4 % (2-12); NEUTROPHILS # (AUTO) 6.8 X10'3 (1.8-7.7); NEUTROPHILS % (AUTO) 74.8 % (42-75); PLATELET COUNT 284 X10'3 (140-440); RED BLOOD COUNT 4.19 X10'6 (4.20-5.60); RED CELL DISTRIBUTION WIDTH 13.5 % (11.5-14.5); WHITE BLOOD COUNT 9.1 X10'3 (4.5-11.0)
[2020-01-10 18:36] LABS: ALANINE AMINOTRANSFERASE 21 U/L (12-78); ALBUMIN 3.9 G/DL (3.4-5.0); ALBUMIN/GLOBULIN RATIO 1.2 (1.1-1.5); ALKALINE PHOSPHATASE 96 IU/L (46-116); ANION GAP 11 (8-16); ASPARTATE AMINO TRANSFERASE 15 U/L (10-37); BILIRUBIN,TOTAL 0.4 MG/DL (0.1-1.0); BLOOD UREA NITROGEN 11 MG/DL (7-18); BUN/CREATININE RATIO 13.9 (6.6-38.0); CALCIUM 8.8 MG/DL (8.5-10.1); CHLORIDE 104 MMOL/L (99-107); CREATININE 0.79 MG/DL (0.40-0.90); GLUCOSE 266 MG/DL (70-104); SODIUM 139 MMOL/L (135-145); TOTAL CARBON DIOXIDE 23.6 MMOL/L (24-32); TOTAL PROTEIN 7.2 G/DL (6.4-8.2); eGFR 88 ML/MIN
[2020-01-10 18:41] LABS: ETHANOL < 0.010 GM/DL (0.0-0.010)
--- NOTE | 2020-01-10 18:49 | NUR ---
ON ARRIVAL, PT ABLE TO DISCUSS WHY SHE IS IN RESTRAINTS, AND APPROPRIATE BEHAVIOR FOR DISCONTINUING. PT AGREED TO PRIORITIZE COOPERATING WITH STAFF, AND WAS ENSURED THAT STAFF WAS PRESENT TO KEEP HER SAFE AND HELP HER. AFTER DISCUSSION, RESTRAINTS DISCONTINUED OTHER THAN RIGHT WRIST, AND PT GIVEN MEAL TRAY. PT STATES THAT STAFF IS SCARING HER. PT REASSURED THAT THE STAFF'S GOAL IS TO KEEP HER SAFE AND HELP HER. PT HAS BIZARRE BEHAVIOR, BUT NO EVIDENCE OF VIOLENT INTENTIONS.
--- NOTE | 2020-01-10 20:00 | NUR ---
Amy sleeping not covered up plan to put patient in green scrubs
[2020-01-10] MEDS: haloperidol 5mg tablet PO SCH (22:58)
[2020-01-11 01:26] LABS: CLARITY,URINE CLEAR (Clear); COLOR,URINE YELLOW (Yellow); GLUCOSE, URINE 250 mg/dl (Neg); KETONES,URINE 15 mg/dl (Neg); LEUKOCYTE ESTERASE ,URINE NEGATIVE (Neg); NITRITES, URINE NEGATIVE (Neg); OCCULT BLOOD,URINE LARGE (Neg); PH,URINE 6.5 (4.8-8.0); PROTEIN,URINE NEGATIVE (Neg); UROBILINOGEN,URINE 0.2 E.U/dL (0.2-1.0)
[2020-01-11 01:27] LABS: URINE HCG NEGATIVE (NEG)
[2020-01-11 01:30] LABS: UA COLLECTION TYPE CLN CATCH MIDSTREAM
[2020-01-11 01:36] LABS: WBC,URINE 0-4 /HPF (0-4)
[2020-01-11 01:38] LABS: BACTERIA,URINE 1+ /HPF (Neg); SQUAMOUS EPITHELIAL CELL,UR MANY /LPF (FEW)
[2020-01-11 01:40] LABS: HYALINE CASTS 0-3 /LPF (NEGATIVE); MUCUS STRANDS FEW /LPF (Neg)
[2020-01-11 01:50] LABS: URINE AMPHETAMINE SCREEN NEGATIVE (Neg); URINE BARBITUATE SCREEN NEGATIVE (Neg); URINE BENZODIAZEPINES SCREEN POSITIVE (Neg); URINE CANNABINOID SCREEN NEGATIVE (Neg); URINE COCAINE SCREEN NEGATIVE (Neg); URINE METHADONE SCREEN NEGATIVE (Neg); URINE OPIATE SCREEN NEGATIVE (Neg); URINE PHENCYCLIDINE SCREEN NEGATIVE (Neg)
--- NOTE | 2020-01-11 02:28 | NUR ---
UA reported to Dr Cancino no new orders
[2020-01-11] MEDS ORDERED: clonazePAM 0.5mg tablet PO ONE (02:45)
[2020-01-11] MEDS ORDERED: OLANZapine 2.5MG tablet PO ONE (02:55)
--- NOTE | 2020-01-11 03:00 | NUR ---
patient escalated screaming after using restroom refused to go to room security called patient than went to admitting desk unable to open door to leave, then went to phone and began pushing buttons on phone. Security arrived on scene assisted patient to bed. Patient placed in green scrubs. single silver metal ring with light blue rock placed in specimen cup and labled. Dr Cancino at desk and witnessed screaming of patient. Orders for medication placed.
--- NOTE | 2020-01-11 03:10 | NUR ---
SITTING IN BED YELLING
--- NOTE | 2020-01-11 03:12 | NUR ---
LIMIT SETTING FOR YELLING PATIENT ADVISED TO TALK ABOUT FEELINGS RATHER THAN SCREAMING, SHE SAID SHE DID NOT CARE WE CAN JUST TIE HER DOWN. ADVISED THAT COOPERATIVE BEHAVIOR IS THE EXPECTATION .
--- NOTE | 2020-01-11 04:00 | NUR ---
SLEEPING ON LEFT SIDE
--- NOTE | 2020-01-11 05:00 | NUR ---
SLEEPING SUPINE NO SIGNS OF DISTRESS OR PAIN
--- NOTE | 2020-01-11 06:30 | NUR ---
RESTRAINTS WERE REMOVED ON MORTGAGE LOAN SPECIALIST.
--- NOTE | 2020-01-11 07:40 | NUR ---
PT SLEEPING QUIETLY
[2020-01-11] MEDS: insulin glargine (Lantus) pen - multi-dose SQ SCH (08:00)
[2020-01-11] MEDS ORDERED: OLANZapine 2.5MG tablet PO SCH (08:00)
[2020-01-11] MEDS ORDERED: INSULIN LISPRO 1 UNIT SQ SCH (08:00)
[2020-01-11] MEDS: busPIRone 15mg tablet PO SCH ×4 (08:42→20:20)
[2020-01-11] MEDS: haloperidol 5mg tablet PO SCH ×3 (08:43→17:08)
--- NOTE | 2020-01-11 08:48 | NUR ---
PT REFUSED HER ZYPREXA THIS AM. WANTS TO TALK TO HER PSYCHRIATRIST BEFORE SHE TAKES A NEW MED.
--- NOTE | 2020-01-11 10:00 | NUR ---
YASMANY UNDERWOOD AT BEDSIDE, ASSESSING PT.
--- NOTE | 2020-01-11 10:56 | NUR ---
PT SLEEPING QUIETLY
--- NOTE | 2020-01-11 11:06 | NUR ---
PT STATES, I FEEL HYPOGLYCEMIC. BG CHECKED 286. WILL INFORM
[2020-01-11] MEDS ORDERED: insulin regular, human 10 units/0.1 ml syringe SQ ONE (11:20)
[2020-01-11] MEDS: insulin Lispro (HumaLOG) vial - multi-dose SQ SCH (20:18)
--- NOTE | 2020-01-11 20:26 | NUR ---
Pt is resting in bed at this time. She is easily arousable and calm and cooperative with care. HS medication given.
--- NOTE | 2020-01-11 22:10 | NUR ---
Pt returned to sleep after receiving HS medication. She is resting comfortably within direct line of isght of the nursing station.
--- NOTE | 2020-01-11 22:38 | NUR ---
Received phone call from Annie at [facility] to discuss the pt for acceptance into their facility. They reported that they require a negative COVID-19 test prior to admitting the pt, otherwise they are looking at the patient for admission possibly in the morning. for [facility].
--- NOTE | 2020-01-12 00:12 | NUR ---
Pt is sleeping, resting in bed lying on her right side. Pt shows no sign of pain or distress. Pt is in direct line of sight of the nursing station.
--- NOTE | 2020-01-12 02:16 | NUR ---
Pt is resting comfortably, sleeping, in bed on her left side. Pt is in direct line of sight of the nursing station.
--- NOTE | 2020-01-12 04:20 | NUR ---
Pt is sleeping on her right side, no signs of distress or pain. Pt is in direct line of sight of the nursing station.
--- NOTE | 2020-01-12 06:03 | NUR ---
Pt is resting comfortably in bed at this time. She is sleeping, no signs of pain or distress noted. She got up to use the restroom a few minutes ago. Her water pitcher was refilled at her request.
[2020-01-12] MEDS: clonazePAM 1mg tablet PO PRN (06:14)
[2020-01-12] MEDS: busPIRone 15mg tablet PO SCH ×4 (07:45→21:23)
[2020-01-12] MEDS: haloperidol 5mg tablet PO SCH ×3 (07:45→17:57)
[2020-01-12] MEDS: insulin glargine (Lantus) pen - multi-dose SQ SCH (07:53)
--- NOTE | 2020-01-12 08:10 | NUR ---
Pt made phone call after phone request, pt remains calm, cooperative and now sitting quietly on bed
[2020-01-12] MEDS: olanzapine 10mg tablet PO SCH (08:21)
[2020-01-12] MEDS: insulin Lispro (HumaLOG) vial - multi-dose SQ SCH (09:11)
--- NOTE | 2020-01-12 09:16 | NUR ---
patient refused her zyprexa, stated " I dont want to make any changes to my antipsychotic meds without talking to my psychiatrist first." Primary RN Xiao aware.
--- NOTE | 2020-01-12 12:33 | NUR ---
Pt remains calm and cooperative and currently quietly sitting on her bed
--- NOTE | 2020-01-12 13:10 | NUR ---
Pt blood glucose was 79, pt now eating lunch tray after BS taken.
--- NOTE | 2020-01-12 13:45 | NUR ---
Pt with glucose reading of 123.
--- NOTE | 2020-01-12 15:55 | NUR ---
Pt currently talking with xavier Munoz from [facility] at bedside.
--- NOTE | 2020-01-12 16:15 | NUR ---
Report from Alexander that pt will be accepted to the [facility] and anticipate pt transfer tomorrow.
--- NOTE | 2020-01-13 06:33 | NUR ---
Assumed care of patient, pt. awake at this time and requested to have her blood sugar checked. BS was 84, pt. reported content and proceeded to return back to sleep. RR even and unlabored.
[2020-01-13] MEDS: olanzapine 10mg tablet PO SCH ×2 (07:24→08:00)
[2020-01-13] MEDS: haloperidol 5mg tablet PO SCH ×3 (07:24→17:46)
[2020-01-13] MEDS: busPIRone 15mg tablet PO SCH ×3 (07:24→17:46)
[2020-01-13] MEDS: insulin glargine (Lantus) pen - multi-dose SQ SCH (08:21)
[2020-01-13] MEDS: insulin Lispro (HumaLOG) vial - multi-dose SQ SCH ×3 (08:30→18:24)
--- NOTE | 2020-01-13 08:35 | NUR ---
Pt. compliant with breakfast and 45 units of scheduled Lantus administered as ordered. Did not administer Humalog per un-needed at this time r/t insulin protocol. Pt. compliant with all medications, however refused Zyprexa. She denies any S/I, H/I, or A/V/VILLAVICENCIO at this time. States, I just came in because my schizophrenia was acting up." Pt. reports that she was living in her own apartment, however would like to be transferred to [facility] at this time in order to be connected with her psychiatrist.
--- NOTE | 2020-01-13 09:40 | NUR ---
Per Dr. Hamlin, need to obtain pt's insulin protocol from [facility] in order for her to be transferred to [facility]. Attempted to reach pt's diabetes coordinator, Aleta Goldberg, however unable to reach. Left a message at [phone]. Endorsed to [facility]
--- NOTE | 2020-01-13 10:30 | NUR ---
Pt. up to use the BR independently, reported anxiety. She requested PRN Clonazepam, medication administered and will continue to monitor.
[2020-01-13] MEDS: clonazePAM 1mg tablet PO PRN (10:42)
--- NOTE | 2020-01-13 12:25 | NUR ---
Obtained pt's BS and was 46, however pt. remains A&O and independent at this time. Endorsed to Dr. Hdz who advised this fiction and nonfiction writer prose to administer pt. a juice (15g of carbohydrates) and protein snack and continue to monitor. Rechecked BS in 15 minutes and was 104.
--- NOTE | 2020-01-13 12:53 | NUR ---
Faxed pt. Consent to Release Records to [facility] in order to obtain information on pt's insulin dosages per Pa at fax# [phone]
--- NOTE | 2020-01-13 14:28 | NUR ---
Pt. sitting up in bed at this time, no s/s of distress and rr even and ulabored.
--- NOTE | 2020-01-13 14:33 | NUR ---
Per [facility], pt's father was able to go to [facility] and obtain pt's insulin records which were signed off by an MD. However, [facility] will be unable to pick pt. up until tomorrow at approximately 0900, pt. aware and reports understanding. Addendum: 01/13/20 at 1629 by GREG Per [facility], pt. has been accepted upstairs at [facility] and the [facility] office believes this would be best for the pt. to provide further stabilization before going to [facility].
--- NOTE | 2020-01-13 16:28 | NUR ---
Pt. laying on her back sleeping at this time, rr even and unlabored.
--- NOTE | 2020-01-13 18:00 | NUR ---
Pt. sitting up and talking on the telephone with her parents. Obtained BS and V/S and were WNL. Pt. will be transferring to [facility] later tonight.
[2020-01-13] MEDS ORDERED: LANTUS SQ (20:25)
[2020-01-13] MEDS ORDERED: OLAN10TA3 PO (20:25)
[2020-01-13 21:39] VITALS: BP 100/88
[2020-02-06] MEDS ORDERED: LANTUS SQ (16:37)
[2020-02-06] MEDS ORDERED: HALO10TA13 PO (16:37)
[2020-02-06] MEDS ORDERED: CLON0.1T2 PO (16:37)
[2020-02-06] MEDS ORDERED: BUSP-29 PO (16:37)
[2020-02-06] MEDS ORDERED: CLON0.5T4 PO (16:37)
[2020-02-06] MEDS ORDERED: INSU100I39 SQ (16:37)
[2020-02-06] MEDS ORDERED: HALO5TAB PO (16:37)
[2020-02-17] MEDS ORDERED: CLON-513 PO (07:47)
[2020-02-17] MEDS ORDERED: CARB100T15 PO (07:47)
[2020-02-17] MEDS ORDERED: BUSP10TA10 PO (07:47)
[2020-02-17] MEDS ORDERED: CLON0.5T4 PO (07:52)
[2020-02-17] MEDS ORDERED: HALO1TAB PO (07:53)
[2020-02-17] MEDS ORDERED: CARB200T40 PO (07:55)
== END 2020-01-13 21:15 ==
LOC: ER 14:31
DX: F29 Unspecified psychosis not due to a substance or known physiological condition (principal); Z20.828 Contact with and (suspected) exposure to other viral communicable diseases; E11.649 Type 2 diabetes mellitus with hypoglycemia without coma; Z79.4 Long term (current) use of insulin; Z79.899 Other long term (current) drug therapy
CPT/HCPCS: 36415; 80053; 80305; 80320; 81001; 81025; 82948; 84443; 85025; 87635; 96372; 99285; C9803; J1200; J1815; J2060

== ENCOUNTER 2020-04-01 20:42 | Emergency (ER) | payer MEDICAID ==
[~2020-04-01] VITALS: Ht 175.3 cm; Wt 77.3 kg
[~2020-04-01 20:42] MED LIST changes: +BUSP10TA10 PO; -BUSP15TA3 PO; +CARB200T40 PO; -CARI1.5C PO; -CLON-371 PO; +CLON0.1T2 PO; +CLON0.5T4 PO; -HALO10TA13 PO; +HALO1TAB PO; -INSU100I31 SQ; +LANTUS SQ; -PROP10TA10 PO; -TRAZ-251 PO
[2020-04-01 20:57] VITALS: BP 136/72
== END 2020-04-01 21:10 ==
LOC: ER 20:42
DX: Z00.8 Encounter for other general examination (principal); F29 Unspecified psychosis not due to a substance or known physiological condition; E11.9 Type 2 diabetes mellitus without complications; F15.90 Other stimulant use, unspecified, uncomplicated; Z79.4 Long term (current) use of insulin; Z79.899 Other long term (current) drug therapy
CPT/HCPCS: 99283

== ENCOUNTER 2020-04-16 12:51 | Emergency (ER) | payer MEDICAID ==
[~2020-04-16] VITALS: Ht 167.6 cm; Wt 68.2 kg
[2020-04-16] MEDS ORDERED: LORazepam 2 mg/ml vial IM ONE (13:50)
[2020-04-16] MEDS ORDERED: diphenhydrAMINE 50 mg/ml inj IM ONE (13:50)
[2020-04-16] MEDS ORDERED: OLANZapine **IM** 10 mg inj. IM ONE (13:50)
[2020-04-16] MEDS ORDERED: haloperidol 5mg tablet PO ONE (14:05)
[2020-04-16] MEDS ORDERED: clonazePAM 0.5mg tablet PO STA (14:05)
[2020-04-16] MEDS ORDERED: carBAMazepine 100mg chewable tablet PO ONE (14:05)
[2020-04-16] MEDS ORDERED: busPIRone 5mg tablet PO STA (14:05)
[2020-04-16 15:05] LABS: BASOPHILS % (AUTO) 0.1 % (0-1); EOSINOPHILS % (AUTO) 0 % (0-6); HEMATOCRIT 37.4 % (35.0-45.0); HEMOGLOBIN 12.3 g/dl (12.0-16.0); LYMPHOCYTES # (AUTO) 0.4 X10'3 (1.1-4.8); LYMPHOCYTES % (AUTO) 2.5 % (21-51); MEAN CORPUSCULAR VOLUME 88.1 FL (78-98); MEAN PLATELET VOLUME 8.6 FL (7.4-10.4); MONOCYTES # (AUTO) 0.6 X10'3 (0-0.9); MONOCYTES % (AUTO) 3.6 % (2-12); NEUTROPHILS # (AUTO) 16.5 X10'3 (1.8-7.7); NEUTROPHILS % (AUTO) 93.8 % (42-75); PLATELET COUNT 257 X10'3 (140-440); RED BLOOD COUNT 4.25 X10'6 (4.20-5.60); RED CELL DISTRIBUTION WIDTH 13.9 % (11.5-14.5); WHITE BLOOD COUNT 17.6 X10'3 (4.5-11.0)
[2020-04-16 15:22] LABS: ALANINE AMINOTRANSFERASE 19 U/L (12-78); ALBUMIN 3.9 G/DL (3.4-5.0); ALBUMIN/GLOBULIN RATIO 1.2 (1.1-1.5); ALKALINE PHOSPHATASE 89 IU/L (46-116); ANION GAP 11 (8-16); ASPARTATE AMINO TRANSFERASE 11 U/L (10-37); BILIRUBIN,TOTAL 0.3 MG/DL (0.1-1.0); BLOOD UREA NITROGEN 10 MG/DL (7-18); BUN/CREATININE RATIO 11.9 (6.6-38.0); CALCIUM 8.4 MG/DL (8.5-10.1); CHLORIDE 98 MMOL/L (99-107); CREATININE 0.84 MG/DL (0.40-0.90); ETHANOL < 0.010 GM/DL (0.0-0.010); GLUCOSE 324 MG/DL (70-104); POTASSIUM 4.4 MMOL/L (3.5-5.1); SODIUM 131 MMOL/L (135-145); TOTAL CARBON DIOXIDE 21.8 MMOL/L (24-32); TOTAL PROTEIN 7.2 G/DL (6.4-8.2); eGFR 82 ML/MIN
--- NOTE | 2020-04-16 15:24 | NUR ---
RESTRAINTS REMOVED. PT CALM. PT UP TO BSC WITH STAND BY ASSIST. US SENT TO LAB
[2020-04-16 15:25] LABS: CARBAMAZEPINE (TEGRETOL) 4.2 UG/ML (4.0-12.0)
[2020-04-16 16:01] LABS: CLARITY,URINE CLEAR (Clear); COLOR,URINE STRAW (Yellow); GLUCOSE, URINE >=1000 mg/dl (Neg); KETONES,URINE 40 mg/dl (Neg); LEUKOCYTE ESTERASE ,URINE NEGATIVE (Neg); NITRITES, URINE NEGATIVE (Neg); OCCULT BLOOD,URINE NEGATIVE (Neg); PROTEIN,URINE NEGATIVE (Neg); UROBILINOGEN,URINE 0.2 E.U/dL (0.2-1.0)
[2020-04-16 16:02] LABS: UA COLLECTION TYPE VOIDED; URINE HCG NEGATIVE (NEG)
[2020-04-16 16:09] LABS: BACTERIA,URINE FEW /HPF (Neg); CAL OXALATE CRYSTALS 2+ /HPF (NEGATIVE); MUCUS STRANDS NONE SEEN /LPF (Neg); RBC,URINE NONE SEEN /HPF (0-2); SQUAMOUS EPITHELIAL CELL,UR FEW /LPF (FEW); WBC,URINE 0-4 /HPF (0-4)
[2020-04-16 16:10] LABS: URINE AMPHETAMINE SCREEN NEGATIVE (Neg); URINE BARBITUATE SCREEN NEGATIVE (Neg); URINE BENZODIAZEPINES SCREEN NEGATIVE (Neg); URINE CANNABINOID SCREEN NEGATIVE (Neg); URINE COCAINE SCREEN NEGATIVE (Neg); URINE METHADONE SCREEN NEGATIVE (Neg); URINE OPIATE SCREEN NEGATIVE (Neg); URINE PHENCYCLIDINE SCREEN NEGATIVE (Neg)
--- NOTE | 2020-04-16 17:35 | NUR ---
PATIENT TAKEN IN [facility] TO ROOM 23
--- NOTE | 2020-04-16 18:30 | NUR ---
PATIENT AMBULATED TO BATHROOM TO VOID WITH STANDBT ASSIST. PATIENT STEADY ON FEET
[2020-04-16] MEDS ORDERED: HALO1TAB PO (19:26)
[2020-04-16] MEDS ORDERED: HALO100A2 IM (19:30)
--- NOTE | 2020-04-16 20:09 | NUR ---
Deyvi lanier in ED - 04/16/20 at 2009 by PINEDA SPOKE TO MOTHER ON THE PHONE REGARDING PATIENT'S HOME MEDICATIONS MOTHER NORMA GWEN [phone]
--- NOTE | 2020-04-16 20:09 | NUR ---
PATIENT APPEARD TO BE SLEEPING ON RIGHT SIDE, RR EVEN AND UNLABORED
[2020-04-16] MEDS ORDERED: insulin Lispro (HumaLOG) vial - multi-dose SQ SCH (21:00)
[2020-04-16] MEDS ORDERED: insulin glargine (Lantus) pen - multi-dose SQ SCH (21:00)
[2020-04-16] MEDS ORDERED: glucagon, human recombinant 1mg kit SUBCUT PRN (21:00)
[2020-04-16] MEDS ORDERED: dextrose ORAL solution 15 GM/59 ML bottle PO PRN ×2 (21:00)
[2020-04-16] MEDS ORDERED: dextrose 50%-water 50ml dispensing syringe IV PRN ×2 (21:00)
[2020-04-16] MEDS ORDERED: MESSAGE TO PHARMACY PO ONE (21:00)
--- NOTE | 2020-04-16 21:11 | NUR ---
Deyvi lanier in EDM - 04/16/20 at 2113 by PINEDA JOHNNA RAMOS THAT PATIENT HAS NOT BEEN TAKING HER MEDS SINCE DECEMBER 2019. THEREFOE, MED REC NOT FAXED .
--- NOTE | 2020-04-17 | NUR ---
Pt resting quietly, respirations normal, no s/s of distress.
--- NOTE | 2020-04-17 01:00 | NUR ---
Pt resting quietly, respirations normal, no s/s of distress.
--- NOTE | 2020-04-17 02:00 | NUR ---
Pt resting quietly, respirations normal, no s/s of distress.
--- NOTE | 2020-04-17 03:00 | NUR ---
Pt resting quietly, respirations normal, no s/s of distress.
--- NOTE | 2020-04-17 04:37 | NUR ---
Pt resting quietly, respirations normal, no s/s of distress.
--- NOTE | 2020-04-17 06:31 | NUR ---
Patient is awake and intense at the nurses station. Patient said talking about RN "She just asked in her mind what mission I am on. Yes, yes, yes." Patient having a hard time following directions. Continue to monitor.
--- NOTE | 2020-04-17 08:00 | NUR ---
RN checking patient's blood glucose. Patient said to RN "You just called me an idiot!". RN calmly advised patient that she did not. Patient appears to be responding to internal stimuli. Continue to monitor.
[2020-04-17] MEDS ORDERED: diphenhydrAMINE 25mg capsule PO ONE (08:45)
[2020-04-17] MEDS ORDERED: haloperidol 5mg tablet PO ONE (08:45)
[2020-04-17] MEDS ORDERED: LORazepam 1 MG tablet PO ONE (08:45)
--- NOTE | 2020-04-17 09:12 | NUR ---
ARRIVED IN ER OVERFLOW TO BREAK PRIMARY RN AYLIN. 2 SECURITY GUARDS PRESENT AND RN WAS ATTEMPTING TO HAVE PATIENT TAKE MEDICATION. PATIENT JUST BLANKLY STARING UP OVER MY HEAD. I ATTEMPTED TO HAVE PATIENT TAKE HER MORNING MEDS. NO EYE CONTACT, NON VERBAL CONTINUED TO STARE OFF. PATIENT'S FATHER ARRIVED AND AFTER ANOTHER 15 MINUTES PATIENT TOOK HER MEDICATION. FATHER SITTING AT BEDSIDE WITH PATIENT. PATIENT WHISOERING TO FATHER
[2020-04-17] MEDS ORDERED: HALO5TAB PO (09:41)
[2020-04-17] MEDS ORDERED: CARB200C7 PO (09:41)
[2020-04-17] MEDS ORDERED: BUSP10TA11 PO (09:41)
[2020-04-17] MEDS ORDERED: CLON0.5T5 PO (09:41)
[2020-04-17] MEDS ORDERED: LANTUS SQ (09:41)
[2020-04-17] MEDS ORDERED: CLON0.1T PO (09:41)
[2020-04-17] MEDS ORDERED: cloNIDine 0.1 mg tablet PO PRN (10:35)
[2020-04-17 10:40] LABS: BASOPHILS % (AUTO) 0.2 % (0-1); EOSINOPHILS % (AUTO) 0 % (0-6); HEMATOCRIT 38.5 % (35.0-45.0); HEMOGLOBIN 12.8 g/dl (12.0-16.0); LYMPHOCYTES % (AUTO) 11.2 % (21-51); MEAN CORPUSCULAR HEMOGLOBIN 29.3 PG (27.0-31.0); MEAN CORPUSCULAR HGB CONC 33.2 g/dL (33.0-36.5); MEAN CORPUSCULAR VOLUME 88.2 FL (78-98); MEAN PLATELET VOLUME 8.8 FL (7.4-10.4); MONOCYTES # (AUTO) 0.4 X10'3 (0-0.9); MONOCYTES % (AUTO) 4.3 % (2-12); NEUTROPHILS # (AUTO) 7.6 X10'3 (1.8-7.7); NEUTROPHILS % (AUTO) 84.3 % (42-75); PLATELET COUNT 283 X10'3 (140-440); RED BLOOD COUNT 4.37 X10'6 (4.20-5.60); RED CELL DISTRIBUTION WIDTH 13.9 % (11.5-14.5)
--- NOTE | 2020-04-17 10:46 | NUR ---
Last received Haldol Deconate on 04/15/20. Due Q 30 days.
--- NOTE | 2020-04-17 10:47 | NUR ---
Father at bedside. Patient sitting with her eyes closed. Continue to monitor.
--- NOTE | 2020-04-17 11:24 | NUR ---
Dad, Douglas Burt [phone]
[2020-04-17] MEDS: haloperidol 5mg tablet PO SCH (12:30)
--- NOTE | 2020-04-17 12:55 | NUR ---
Patient eating lunch. No distress observed. Continue to monitor.
[2020-04-17] MEDS: busPIRone 5mg tablet PO SCH ×2 (13:00→19:16)
[2020-04-17] MEDS ORDERED: diphenhydrAMINE 50 mg/ml inj ONE (13:15)
[2020-04-17] MEDS ORDERED: haloperidol lactate 5mg/ml inj ONE (13:16)
[2020-04-17] MEDS ORDERED: LORazepam 2 mg/ml vial ONE (13:16)
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
[2020-04-17 14:00] VITALS: BP 120/76
--- NOTE | 2020-04-17 14:35 | NUR ---
Patient clapping and talking and yelling about baby utility helicopter repairer killers and would not be quiet. Patient telling staff to get out of the bad acting hole and stop talking about me. Continue to monitor.
[2020-04-17] MEDS ORDERED: OLANZapine **IM** 10 mg inj. IM ONE (14:50)
--- NOTE | 2020-04-17 14:55 | NUR ---
Patient continuing to yell. RN received an I.M. order from FELISA Loya. Patient took injection with encouragement. Security at bedside. Continue to monitor.
--- NOTE | 2020-04-17 15:15 | NUR ---
Patient screams out at another patient on the phone who speaking with her father. "Get off the fucking phone and stop talking to my brother." RN attempted to explain the other patient was not speaking to her brother. Patient is delusional and unable to be reasoned with. Continue to monitor.
--- NOTE | 2020-04-17 15:46 | NUR ---
RN came back from break. Patient points to RN and said "This bitch is part of the [facility] [employer] and if she isn't handcuffed right now, I am going to be mad!". Then patient laid back down. Continue to monitor.
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
--- NOTE | 2020-04-17 16:00 | NUR ---
Patient's father just arrived. Continue to monitor.
--- NOTE | 2020-04-17 16:45 | NUR ---
Patient sleeping with father at bedside. No distress observed. Continue to monitor.
[2020-04-17] MEDS: divalproex sodium 500mg tablet.DR PO SCH (17:14)
--- NOTE | 2020-04-17 17:40 | NUR ---
Patient screaming for 25 minutes since just before her dad left. RN spoke to Dr Ch and if the patient is still screaming and/or attempting to walk out at 1800, patientr may receive 2 mg of Ativan I.M.
--- NOTE | 2020-04-17 17:50 | NUR ---
Patient attempted to walk out. RN stood in the doorway and patient stopped and after a few minutes went back to her bed. Continue to monitor.
--- NOTE | 2020-04-17 18:30 | NUR ---
PATIENT IS PARANOID AND MAKING STATEMENTS ABOUT LEAVING . ALSO IS WALKING AROUND ROOM AND SEEING ANIMALS GOING ACROSS THE FLOOR.
--- NOTE | 2020-04-17 18:45 | NUR ---
PATIENT TAKES LANTUS IN THE MORNING , PER MED REC. SHE IS REFUSING INSULIN AT THIS TIME IS HOWEVER ALLOWING ME TO CHECK GLUCOSE PRIOR TO EATING . GLUCOSE IS 279 . PATIENT STATES,"I WILL BE HAPPY TO TAKE MY INSULIN IN THE MORNING , BUT I DROP DURING THE NIGHT."
[2020-04-17] MEDS: clonazePAM 0.5mg tablet PO SCH (19:16)
--- NOTE | 2020-04-17 19:29 | NUR ---
PATIENT WAS AGITATED AND MAKING PROVOKITIVE STATEMENTS, WHILE ATTEMPTING TO LEAVE UNIT SECURITY WAS CALLED. PATIENT WAS DIRECTED BACK TO BED AND MEDS WERE GIVEN. PATIENT IS CURRENTLY IN BED SITTING UP WITH DINNER AT BEDSIDE
[2020-04-17] MEDS: carBAMazepine 100mg chewable tablet PO SCH (20:08)
[2020-04-17] MEDS ORDERED: haloperidol 1mg tablet PO SCH (21:00)
--- NOTE | 2020-04-17 21:19 | NUR ---
PATIENT IS REFUSING TO ALLOW ME TO RECHECK GLUCOSE AT THIS TIME . WILL ATTEMPT LATER ONCE PATIENT IS MORE COOPERATIVE
[2020-04-18] MEDS ORDERED: diphenhydrAMINE 50 mg/ml inj ONE (00:07)
[2020-04-18] MEDS ORDERED: haloperidol lactate 5mg/ml inj ONE (00:07)
[2020-04-18] MEDS ORDERED: LORazepam 2 mg/ml vial ONE (00:08)
[2020-04-18] MEDS ORDERED: diphenhydrAMINE 50 mg/ml inj IM ONE (00:10)
[2020-04-18] MEDS ORDERED: haloperidol lactate 5mg/ml inj IM ONE (00:10)
[2020-04-18] MEDS ORDERED: LORazepam 2 mg/ml vial IM ONE (00:10)
--- NOTE | 2020-04-18 00:26 | NUR ---
PATIENT WAS GIVEN IM ATIVAN, BENDRYL, AND HALDOL DUE TO AGITATION TOWARDS STAFF. SECURITY AND MAN POWER WAS CALLED IN . PATIENT IN NOW BACK TO BED AND SEEMS TO BE MORE RELAXED AT THIS TIME.
--- NOTE | 2020-04-18 00:36 | NUR ---
PATIENT IS NOW YELLING IN BED AND CALLING STAFF SEVERAL NAMES . SECURITY PRESENT AND INFORMING PATIENT THIS BEHAVIOR IS NOT TOLERATED
--- NOTE | 2020-04-18 01:07 | NUR ---
patient awake calling out demanding to see and review chart, manipulating care with bargaining tactics starts with compliment then escalates to profanity with threats if here requests are not met. No affect noted to previous medications given. Dr durand notified and komal for serroquel placed.
[2020-04-18] MEDS ORDERED: QUEtiapine 25mg tablet PO SCH ×2 (01:35→02:51)
--- NOTE | 2020-04-18 02:12 | NUR ---
PATIENT TOOK MOST OF THE PO SEROQUEL ORDER, IS NOW REFUSING THE REMAINING DOSE
--- NOTE | 2020-04-18 03:19 | NUR ---
RECIEVED ORDER FOR 300MG SEROQUEL PO FROM DR. ROTH. SPOKE TO LUZ MARIA PHARMACIST WHO STATED TO HOLD THE MEDICATION AND THAT HE WILL NOT APPROVE DUE TO THE SIZE OF THE DOSAGE OF FIRST TIME AND THAT HE WOULD CLARIFY THE ORDER. I THEN SEEN THE ORDER FOR 12 TABS OF 25MG GET APPROVED, WHILE AN ORDER FOR 3TABS [id number] GET CANCELLED . SO I WENT AHEAD AND SCANNED THE MEDS AND ADMINISTERED THE MEDICATION. PATIENT DID HOWEVER ONLY TOOK ABOUT 120MGS AND THEN REFUSED THE REST. PATIENT IS CURRENTLY RESTING , EQUAL CHEST RISE BILATERALLY AND RES AT 16 A MIN. NO OTHER COMPLAINTS AT THIS TIME.
--- NOTE | 2020-04-18 06:30 | NUR ---
PT SLEEPING NO S/S AGITATION
--- NOTE | 2020-04-18 07:45 | NUR ---
SPOKE TO BRIANA AT [facility]. HE WILL DISCUSS PT'S CASE WITH THE DOCTOR WHEN THEY COME IN.
[2020-04-18] MEDS ORDERED: insulin glargine (Lantus) pen - multi-dose SQ SCH (08:00)
--- NOTE | 2020-04-18 08:18 | NUR ---
PT'S FATHER CALLS FOR UP DATE AND TO SEE IF THEY CAN COME AND VISIT. PT IS SLEEPING AND THEY WILL CALL BACK TO SEE WHEN IT WOULD BE A BETTER TIME TO VISIT.
[2020-04-18] MEDS: carBAMazepine 100mg chewable tablet PO SCH (10:07)
[2020-04-18] MEDS: haloperidol 5mg tablet PO SCH (10:07)
--- NOTE | 2020-04-18 10:29 | NUR ---
PT AWAKE AND COOPERATIVE TAKING HER MEDICATION. PT REFUSES THE DEPAKOTE BECAUSE SHE DOESNT TAKE IT AT HOME.
[2020-04-18] MEDS: divalproex sodium 500mg tablet.DR PO SCH (11:14)
[2020-04-18] MEDS: clonazePAM 0.5mg tablet PO SCH (11:14)
[2020-04-18] MEDS: busPIRone 5mg tablet PO SCH (11:14)
--- NOTE | 2020-04-18 11:14 | NUR ---
PT'S MOTHER AT BEDSIDE FOR A VISIT. PT AGREES TO TAKE THE DEPAKOTE WITH MOM'S ENCOURAGEMENT. IT IS A NEW MEDICATION AND PT REFUSED EARLIER. PT ALSO GIVEN HER MEDICATIONS THAT SHE STATES SHE TAKES AT NOON. INSTRUCT PT THAT THE HOSPITAL TIMES MAY BE SLIGHTLY DIFFERENT THAN HER HOME TIMES BUT SHE TAKES THE SAME AMOUNTS. PT IS CALM AN COOPERATIVE.
[2020-04-18] MEDS ORDERED: DIVA-76 PO (13:38)
--- NOTE | 2020-04-18 14:15 | NUR ---
PT HAS BEEN TRANSFERRED TO [facility].
[2020-04-18] MEDS ORDERED: quetiapine 100mg tablet PO SCH (21:00)
[2020-04-19] MEDS ORDERED: CARB200T39 PO (11:59)
[2020-05-17] MEDS ORDERED: haloperidol decanoate***LONG-ACTING*** 100mg/ml **IM only** inj. IM SCH (08:00)
== END 2020-04-18 14:15 ==
LOC: ER 12:51
DX: F29 Unspecified psychosis not due to a substance or known physiological condition (principal); Z20.822 Contact with and (suspected) exposure to COVID-19; E87.1 Hypo-osmolality and hyponatremia; E11.9 Type 2 diabetes mellitus without complications; F15.90 Other stimulant use, unspecified, uncomplicated; Z79.4 Long term (current) use of insulin; Z79.899 Other long term (current) drug therapy
CPT/HCPCS: 36415; 80053; 80156; 80305; 80320; 81001; 81025; 82948; 83036; 85025; 87426; 96372; 99285; J1200; J1630; J1815; J2060; J3490; Q0163

== ENCOUNTER 2020-05-21 17:48 | Emergency (ER) | payer MEDICAID ==
[~2020-05-21] VITALS: Ht 177.8 cm; Wt 76.4 kg
[~2020-05-21 17:48] MED LIST changes: +BUSP10TA11 PO; +BUSP10TA3 PO; +CARB-212 PO; -CARB200T40 PO; +CLON0.1T PO; +CLON0.5T5 PO; +CLOZ100T13 PO; +CLOZ25TA12 PO; +HALO100A2 IM; -INSU100I39 SQ; +INSU100V11 SQ; +TRAZ-251 PO
--- NOTE | 2020-05-21 19:33 | NUR ---
Patient is on general science teacher, VSS, NSR. Patient becoming more coherent; patient is offered food and declines at this time. Warm blanket given.
--- NOTE | 2020-05-21 21:01 | NUR ---
Pt is awaiting a bed in Behavioral [facility].
[2020-05-21] MEDS ORDERED: BUSP10TA11 PO ×3 (23:21→23:24)
[2020-05-21] MEDS ORDERED: CLON-528 PO ×2 (23:24→23:26)
[2020-05-21] MEDS ORDERED: CLON0.1T2 PO (23:27)
[2020-05-21] MEDS ORDERED: CLOZ100T21 PO (23:28)
[2020-05-21] MEDS ORDERED: CLOZ50TA PO (23:30)
[2020-05-21] MEDS ORDERED: INSU100V9 SQ (23:31)
[2020-05-21] MEDS ORDERED: INSU100V11 SQ (23:33)
[2020-05-21] MEDS ORDERED: TRAZ-251 PO (23:34)
[2020-05-22] MEDS ORDERED: traZODone 50mg tablet PO PRN (00:45)
[2020-05-22] MEDS ORDERED: dextrose ORAL solution 15 GM/59 ML bottle PO PRN ×2 (01:00)
[2020-05-22] MEDS ORDERED: glucagon, human recombinant 1mg kit SUBCUT PRN (01:00)
[2020-05-22] MEDS ORDERED: MESSAGE TO PHARMACY PO ONE (01:00)
[2020-05-22] MEDS ORDERED: dextrose 50%-water 50ml dispensing syringe IV PRN ×2 (01:00)
[2020-05-22] MEDS: clozapine 100mg tablet PO SCH ×2 (01:27→22:05)
--- NOTE | 2020-05-22 06:40 | NUR ---
patient is resting comfortably, appears to be asleep
--- NOTE | 2020-05-22 07:00 | NUR ---
Received pt asleep in bed without signs of distress.
[2020-05-22] MEDS: insulin glargine (Lantus) pen - multi-dose SQ SCH (08:18)
[2020-05-22] MEDS: cloNIDine 0.1 mg tablet PO SCH ×3 (08:23→21:00)
--- NOTE | 2020-05-22 09:49 | NUR ---
Pt cooperative with move from main ER to ER overflow.
--- NOTE | 2020-05-22 11:00 | NUR ---
Pt resting quietly in bed. Pt asked the nurse what is my thoughts on archangels and seemed ok with the answer. Pt now appears to be sleeping without complaints or distress.
--- NOTE | 2020-05-22 11:40 | NUR ---
patient is resting comfortably at this time
[2020-05-22] MEDS: clozapine 25mg tablet PO SCH (12:53)
[2020-05-22] MEDS: clonazePAM 0.5mg tablet PO SCH ×2 (12:53→22:05)
[2020-05-22] MEDS: busPIRone 5mg tablet PO SCH ×3 (12:55→18:08)
--- NOTE | 2020-05-22 13:00 | NUR ---
Pt has remained sleeping without distress. Pt awoken for blood glucose test, take medications and to eat lunch.
[2020-05-22] MEDS: insulin Lispro (HumaLOG) vial - multi-dose SQ SCH ×2 (13:15→18:18)
[2020-05-22] MEDS: acetaminophen 325mg tablet PO PRN (13:52)
[2020-05-22 14:03] LABS: CLARITY,URINE CLEAR (Clear); COLOR,URINE YELLOW (Yellow); GLUCOSE, URINE NEGATIVE (Neg); KETONES,URINE NEGATIVE (Neg); LEUKOCYTE ESTERASE ,URINE NEGATIVE (Neg); NITRITES, URINE NEGATIVE (Neg); OCCULT BLOOD,URINE NEGATIVE (Neg); PROTEIN,URINE NEGATIVE (Neg); UROBILINOGEN,URINE 0.2 E.U/dL (0.2-1.0)
[2020-05-22 14:16] LABS: URINE AMPHETAMINE SCREEN NEGATIVE (Neg); URINE BARBITUATE SCREEN NEGATIVE (Neg); URINE BENZODIAZEPINES SCREEN NEGATIVE (Neg); URINE CANNABINOID SCREEN NEGATIVE (Neg); URINE COCAINE SCREEN NEGATIVE (Neg); URINE METHADONE SCREEN NEGATIVE (Neg); URINE OPIATE SCREEN NEGATIVE (Neg); URINE PHENCYCLIDINE SCREEN NEGATIVE (Neg)
[2020-05-22 14:17] LABS: UA COLLECTION TYPE CLN CATCH MIDSTREAM
[2020-05-22 14:25] LABS: BASOPHILS % (AUTO) 0.4 % (0-1); EOSINOPHILS # (AUTO) 0.1 X10'3 (0-0.9); EOSINOPHILS % (AUTO) 1.9 % (0-6); HEMATOCRIT 37.2 % (35.0-45.0); HEMOGLOBIN 12.5 g/dl (12.0-16.0); LYMPHOCYTES # (AUTO) 2.3 X10'3 (1.1-4.8); LYMPHOCYTES % (AUTO) 39.5 % (21-51); MEAN CORPUSCULAR HEMOGLOBIN 29.3 PG (27.0-31.0); MEAN CORPUSCULAR HGB CONC 33.5 g/dL (33.0-36.5); MEAN CORPUSCULAR VOLUME 87.6 FL (78-98); MEAN PLATELET VOLUME 9.1 FL (7.4-10.4); MONOCYTES # (AUTO) 0.4 X10'3 (0-0.9); MONOCYTES % (AUTO) 6.7 % (2-12); NEUTROPHILS % (AUTO) 51.5 % (42-75); PLATELET COUNT 232 X10'3 (140-440); RED BLOOD COUNT 4.25 X10'6 (4.20-5.60); RED CELL DISTRIBUTION WIDTH 13.3 % (11.5-14.5); WHITE BLOOD COUNT 5.7 X10'3 (4.5-11.0)
--- NOTE | 2020-05-22 15:00 | NUR ---
Pt awake in bed with mom at bedside visiting quietly. Appears peaceful. Pt has been polite.
--- NOTE | 2020-05-22 15:07 | NUR ---
[facility] FAXED
--- NOTE | 2020-05-22 17:00 | NUR ---
Pt mom left and pt has been sleeping for about an hour in no apparent distress.
--- NOTE | 2020-05-22 18:33 | NUR ---
Pt appears to be sleeping with RR 14, no obvious distress noted.
--- NOTE | 2020-05-22 19:45 | NUR ---
Pt continues to sleep, RR 13 with non-labored respirations, no signs of distress at this time. Will continue to monitor.
--- NOTE | 2020-05-22 22:15 | NUR ---
Vitals done, BP 88/54 with MAP of 65. Pt in stable condition but will not be giving Clonidine at thist time.
[2020-05-23 00:30] LABS: URINE HCG NEGATIVE (NEG)
[2020-05-23 00:45] LABS: ALANINE AMINOTRANSFERASE 18 U/L (12-78); ALBUMIN 3.7 G/DL (3.4-5.0); ALBUMIN/GLOBULIN RATIO 1.1 (1.1-1.5); ALKALINE PHOSPHATASE 81 IU/L (46-116); ANION GAP 8 (8-16); ASPARTATE AMINO TRANSFERASE 21 U/L (10-37); BILIRUBIN,TOTAL 0.4 MG/DL (0.1-1.0); BLOOD UREA NITROGEN 13 MG/DL (7-18); BUN/CREATININE RATIO 17.6 (6.6-38.0); CHLORIDE 107 MMOL/L (99-107); CREATININE 0.74 MG/DL (0.40-0.90); GLUCOSE 115 MG/DL (70-104); POTASSIUM 3.9 MMOL/L (3.5-5.1); SODIUM 145 MMOL/L (135-145); TOTAL CARBON DIOXIDE 29.7 MMOL/L (24-32); TOTAL PROTEIN 7.1 G/DL (6.4-8.2); eGFR > 90 ML/MIN
--- NOTE | 2020-05-23 06:30 | NUR ---
RN received pt. asleep in bed on right side. Normal R&R of repisrations noted. Pt. in no apparent distress.
--- NOTE | 2020-05-23 06:30 | NUR ---
Pt. appears to be sleeping. Pt. lying on right side with normal R&R of respirations. Pt. in no apparent distress.
[2020-05-23] MEDS: acetaminophen 325mg tablet PO PRN ×3 (07:49→22:12)
[2020-05-23] MEDS: cloNIDine 0.1 mg tablet PO SCH ×2 (08:00→12:35)
[2020-05-23] MEDS: insulin glargine (Lantus) pen - multi-dose SQ SCH (08:34)
--- NOTE | 2020-05-23 08:40 | NUR ---
Pt.'s CBG was 101. Pt. received 35 units of Lantus. Clonidine held due to low systolic BP of 109/78 per medication parameters.
--- NOTE | 2020-05-23 08:42 | NUR ---
Pt. ate 9 grams of carbs with her meal, about 50% of her breakfast.
--- NOTE | 2020-05-23 09:05 | NUR ---
pt mom here to visit
[2020-05-23] MEDS: benzocaine/menthol oral lozeng 1 EACH BOX MM PRN (09:17)
[2020-05-23] MEDS ORDERED: polyethylene glycol 3350 17gm powd pack PO ONE (10:55)
[2020-05-23] MEDS: clonazePAM 0.5mg tablet PO SCH ×2 (12:31→22:12)
[2020-05-23] MEDS: busPIRone 5mg tablet PO SCH ×3 (12:31→18:49)
[2020-05-23] MEDS: clozapine 25mg tablet PO SCH (12:32)
[2020-05-23] MEDS: insulin Lispro (HumaLOG) vial - multi-dose SQ SCH ×2 (13:34→18:48)
--- NOTE | 2020-05-23 14:34 | NUR ---
RN informed by Angela that pt. has been declined due to her high level of acuity.
--- NOTE | 2020-05-23 15:14 | NUR ---
Pt.'s blood sugar 50. Pt. refused oral dextrose solution but agreed to drink 90ml orange juice and eat a turkey and cheese sandwich. Will reasess in 15 minutes.
--- NOTE | 2020-05-23 15:35 | NUR ---
Pt.'s blood sugar reassessed is is 100. Pt. ate two turkey sandwiches with 38 grams of carbs and one orange juice and a half of a jello.
[2020-05-23] MEDS ORDERED: cloNIDine 0.1 mg tablet PO PRN (16:55)
--- NOTE | 2020-05-23 18:00 | NUR ---
The patient moved to bed 22 in the ER and she was cooperative with the move. Her mother at the bedside visiting.
--- NOTE | 2020-05-23 18:57 | NUR ---
The patient is resting quietly on her bed. She states that her anxiety level is low. She described her mood as "okay" She has not had any acting out or aggressive behaviors. She denies medication side effects. Her affect is blunted.
--- NOTE | 2020-05-23 21:00 | NUR ---
The patient is resting quietly on her bed.
[2020-05-23] MEDS: clozapine 100mg tablet PO SCH (22:12)
--- NOTE | 2020-05-23 23:01 | NUR ---
The patient appears to be sleeping. She took all of her HS medications without difficulty. She requested/received tylenol for a headache
--- NOTE | 2020-05-24 00:31 | NUR ---
The patient appears to be sleeping
--- NOTE | 2020-05-24 01:17 | NUR ---
The patient appears to be sleeping
--- NOTE | 2020-05-24 03:11 | NUR ---
The patient appears to be sleeping
--- NOTE | 2020-05-24 04:16 | NUR ---
The patient appears to be sleeping
--- NOTE | 2020-05-24 05:31 | NUR ---
The patient appeared to have slept well during the night.
--- NOTE | 2020-05-24 06:23 | NUR ---
Received pt. sleeping in bed at the beginning of the shift, rr even and unlabored.
--- NOTE | 2020-05-24 07:35 | NUR ---
Pt. continues to sleep at this time, laying on her left side, appears to be resting comfortably.
[2020-05-24] MEDS ORDERED: polyethylene glycol 3350 17gm powd pack PO SCH (08:00)
[2020-05-24] MEDS: acetaminophen 325mg tablet PO PRN ×2 (08:19→15:45)
[2020-05-24] MEDS: benzocaine/menthol oral lozeng 1 EACH BOX MM PRN ×2 (08:21→15:47)
--- NOTE | 2020-05-24 08:39 | NUR ---
Pt. awoke and ambulated independently to the . Her BS was checked and was 66. Pt. provided with juice and breakfast, and BS rechecked afterwards. BS was 142. Pt. remains on Level 1 of diabetic protocol, and no Humalog coverage was needed. Will administer scheduled Lantus and continue to monitor. Pt. requested Tylenol for a h/a and a throat lozenge for a sore throat. She is on the telephone with her public guardian at this time, pt. is calm and cooperative. 1:1 completed at beside, pt. denies any S/I, H/I, A/V/VILLAVICENCIO, and no delusional statements made.
--- NOTE | 2020-05-24 09:00 | NUR ---
[facility] faxed over pt's [id number], she is on a hold for GD and DTO. Placed in pt's chart and Dr. Aldana notified.
[2020-05-24] MEDS: insulin glargine (Lantus) pen - multi-dose SQ SCH (09:19)
--- NOTE | 2020-05-24 09:22 | NUR ---
Pt. sitting on the edge of the bed at this time brushing her hair, she remains calm and cooperative.
--- NOTE | 2020-05-24 10:01 | NUR ---
Pt's father in to visit pt. at this time, sitting in a chair at bedside.
--- NOTE | 2020-05-24 10:30 | NUR ---
Pt. continues to sit up in bed at this time visiting with her father, visit appears to be going well.
--- NOTE | 2020-05-24 11:37 | NUR ---
Pt. sitting up in bed and is visiting with her mother at this time. RR remain even and unlabored and pt. appears calm. Received a call from [facility] regarding pt. They are interested in taking her, but are requesting this automobile service writer fax her current labs. Addendum: 05/24/20 at 1151 by GREG Pt's most current labs faxed to [facility], will await a call back regarding possible placement.
[2020-05-24] MEDS: clonazePAM 0.5mg tablet PO SCH ×2 (12:13→20:34)
[2020-05-24] MEDS: clozapine 25mg tablet PO SCH (12:13)
[2020-05-24] MEDS: busPIRone 5mg tablet PO SCH ×3 (12:14→18:20)
--- NOTE | 2020-05-24 12:19 | NUR ---
Pt. requested PRN Clonidine along with her afternoon medictaions r/t anxiety, BP and pulse obtained prior and were WNl. Medication administered, will continue to monitor. Pt. selected a book to read during her stay, while monitored by staff.
--- NOTE | 2020-05-24 12:26 | NUR ---
break RN notes:patient asleep at this time,we will monitor.
--- NOTE | 2020-05-24 13:15 | NUR ---
Spoke with Mary Ann at [facility], who requsts this flex o writer operator to fax notes on pt. from last two days. [facility] will reconsider placement.
--- NOTE | 2020-05-24 13:27 | NUR ---
Pt. sleeping on her left side at this time, no s/s of distress noted, will continue to monitor.
[2020-05-24] MEDS: insulin Lispro (HumaLOG) vial - multi-dose SQ SCH (13:43)
--- NOTE | 2020-05-24 14:30 | NUR ---
Pt. continues to sleep at this time, laying on her back, rr even and unlabored.
--- NOTE | 2020-05-24 15:15 | NUR ---
Gave report to [facility] reguarding pt. They will re-present pt. to provider.
--- NOTE | 2020-05-24 15:27 | NUR ---
Pt. continues to sleep at this time, will continue to monitor.
--- NOTE | 2020-05-24 16:09 | NUR ---
Pt. requested BS to be checked at approximately 1550 r/t "feeling lightheaded" and was 35, pt. given two juices and BS rechecked in 15 minutes per protocol, was 91. Will endorse to MD and continue to monitor. Pt. refuses a snack at this time. She is laying in bed with her eyes open relaxing and denies any continued "lightheadedness," will continue to monitor.
--- NOTE | 2020-05-24 16:30 | NUR ---
Pt. resting in bed talking on the telephone at this time, no s/s of distress noted. [facility] called and reports pt. has been accepted there at around [id number] tonight. This was endorsed to pt. and she reported content.
--- NOTE | 2020-05-24 17:24 | NUR ---
Pt. sitting up in bed visiting with her mother at this time, visit appears to be going well.
--- NOTE | 2020-05-24 18:11 | NUR ---
Obtained pt's BS at 1745 and was 47, pt. provided with orange juice and a protein snack. Rechecked BS per protocol and was 72. Endorsed pt's labile blood sugars today to Dr. Hamlin, who advises this machine sign writer to continue to remain at level one on the Insulin Adjustment Tool and monitor pt's blood sugars more frequently as needed, will endorse to Noc shift.
--- NOTE | 2020-05-24 18:15 | NUR ---
Pt. sitting up in bed eating dinner at this time, no s/s of distress noted.
--- NOTE | 2020-05-24 18:42 | NUR ---
The patient is resting on his bed and is calm. She denies depression. She denies auditory or visual hallucinations. Discussed with the patient the plan to be transferred to [facility] later tonight.
--- NOTE | 2020-05-24 19:04 | NUR ---
Per [facility] the patient will no be able to be admitted to the unit until the morning. The patient was made aware and the PA was also made aware that the patient won't be transferred until the morning.
--- NOTE | 2020-05-24 20:04 | NUR ---
The patient is resting on her bed.
[2020-05-24] MEDS: clozapine 100mg tablet PO SCH (20:34)
--- NOTE | 2020-05-24 20:48 | NUR ---
The patient's BS is 262 but the one unit of coverage being held 2nd to the patient being hypogycemic numerous times during the day.
--- NOTE | 2020-05-24 22:25 | NUR ---
The patient appears to be sleeping
--- NOTE | 2020-05-24 23:06 | NUR ---
The patient appears to be sleeping
--- NOTE | 2020-05-25 00:32 | NUR ---
The patient appears to be sleeping
--- NOTE | 2020-05-25 01:46 | NUR ---
The patient appears to be sleeping
--- NOTE | 2020-05-25 03:14 | NUR ---
The patient appears to be sleeping
--- NOTE | 2020-05-25 04:53 | NUR ---
The patient appears to have slept well during the night.
[2020-05-25 05:34] VITALS: BP 105/63
--- NOTE | 2020-05-25 07:00 | NUR ---
Received pt asleep in bed, pt just now waking up. Pt calm.
== END 2020-05-25 07:50 ==
LOC: ER 17:49 → EEVIPCON 17:49 → ER 05-25 07:50
DX: F23 Brief psychotic disorder (principal); F31.9 Bipolar disorder, unspecified; E11.9 Type 2 diabetes mellitus without complications; F15.90 Other stimulant use, unspecified, uncomplicated; Z88.8 Allergy status to other drugs, medicaments and biological substances; Z79.4 Long term (current) use of insulin; Z79.899 Other long term (current) drug therapy
CPT/HCPCS: 36415; 80053; 80305; 81003; 81025; 82948; 83036; 84443; 85025; 96372; 99291; J1815; 99285

== ENCOUNTER 2021-07-31 20:09 | Emergency (ER) | payer MEDICAID ==
[~2021-07-31] VITALS: Ht 175.3 cm; Wt 77.3 kg
[~2021-07-31 20:09] MED LIST changes: -BUSP10TA10 PO; -BUSP10TA3 PO; -CARB-212 PO; +CLON-528 PO; -CLON0.1T PO; -CLON0.5T4 PO; -CLON0.5T5 PO; +CLON1TAB12 PO; -CLOZ100T13 PO; +CLOZ100T21 PO; +GLUC1KIT2 SUBCUT; -HALO100A2 IM; -HALO1TAB PO; -HALO5TAB PO; +INSU100V9 SQ; -LANTUS SQ
[2021-07-31] MEDS ORDERED: normal saline 1000ml 1,000 ML IV ONE ×4 (20:35→23:50)
[2021-07-31 21:03] LABS: BASOPHILS % (AUTO) 0.3 % (0-1); EOSINOPHILS % (AUTO) 0 % (0-6); HEMATOCRIT 37.7 % (35.0-45.0); HEMOGLOBIN 12.4 g/dl (12.0-16.0); LYMPHOCYTES # (AUTO) 2.4 X10'3 (1.1-4.8); LYMPHOCYTES % (AUTO) 38.1 % (21-51); MEAN CORPUSCULAR HEMOGLOBIN 28.4 PG (27.0-31.0); MEAN CORPUSCULAR HGB CONC 32.9 g/dL (33.0-36.5); MEAN CORPUSCULAR VOLUME 86.4 FL (78-98); MEAN PLATELET VOLUME 8.9 FL (7.4-10.4); MONOCYTES # (AUTO) 0.3 X10'3 (0-0.9); MONOCYTES % (AUTO) 4.3 % (2-12); NEUTROPHILS # (AUTO) 3.7 X10'3 (1.8-7.7); NEUTROPHILS % (AUTO) 57.3 % (42-75); PLATELET COUNT 251 X10'3 (140-440); RED BLOOD COUNT 4.36 X10'6 (4.20-5.60); RED CELL DISTRIBUTION WIDTH 13.8 % (11.5-14.5); WHITE BLOOD COUNT 6.4 X10'3 (4.5-11.0)
[2021-07-31 21:04] LABS: CLARITY,URINE CLEAR (Clear); GLUCOSE, URINE >=1000 mg/dl (Neg); KETONES,URINE NEGATIVE (Neg); LEUKOCYTE ESTERASE ,URINE NEGATIVE (Neg); NITRITES, URINE NEGATIVE (Neg); OCCULT BLOOD,URINE TRACE-INTACT (Neg); PROTEIN,URINE NEGATIVE (Neg); UROBILINOGEN,URINE 0.2 E.U/dL (0.2-1.0)
[2021-07-31 21:05] LABS: COLOR,URINE STRAW (Yellow); UA COLLECTION TYPE CLN CATCH MIDSTREAM
[2021-07-31 21:09] LABS: URINE HCG NEGATIVE (NEG)
[2021-07-31 21:16] LABS: BACTERIA,URINE NONE SEEN /HPF (Neg); MUCUS STRANDS NONE SEEN /LPF (Neg); RBC,URINE 0-2 /HPF (0-2); SQUAMOUS EPITHELIAL CELL,UR FEW /LPF (FEW); WBC,URINE 0-4 /HPF (0-4)
[2021-07-31 21:19] LABS: ALANINE AMINOTRANSFERASE 21 U/L (12-78); ALBUMIN 3.4 G/DL (3.4-5.0); ALBUMIN/GLOBULIN RATIO 1.1 (1.1-1.5); ALKALINE PHOSPHATASE 104 IU/L (46-116); ANION GAP 11 (8-16); ASPARTATE AMINO TRANSFERASE 15 U/L (10-37); BILIRUBIN,TOTAL 0.1 MG/DL (0.1-1.0); BLOOD UREA NITROGEN 10 MG/DL (7-18); BUN/CREATININE RATIO 11.6 (6.6-38.0); CALCIUM 8.1 MG/DL (8.5-10.1); CHLORIDE 107 MMOL/L (99-107); CREATININE 0.86 MG/DL (0.40-0.90); GLUCOSE 367 MG/DL (70-104); POTASSIUM 4.1 MMOL/L (3.5-5.1); SODIUM 139 MMOL/L (135-145); TOTAL CARBON DIOXIDE 21.4 MMOL/L (24-32); TOTAL PROTEIN 6.5 G/DL (6.4-8.2); eGFR 79 ML/MIN
[2021-08-01 02:22] VITALS: BP 100/73
== END 2021-08-01 03:00 | disposition home or self-care (01) ==
LOC: ER 20:10
DX: E11.65 Type 2 diabetes mellitus with hyperglycemia (principal); F20.9 Schizophrenia, unspecified; F31.9 Bipolar disorder, unspecified; F15.10 Other stimulant abuse, uncomplicated; Z88.8 Allergy status to other drugs, medicaments and biological substances; Z79.899 Other long term (current) drug therapy
CPT/HCPCS: 36415; 71045; 80053; 81001; 81025; 82948; 83605; 85025; 96360; 96361; 99285; J7030